=== PATIENT | male | born 1935 | race Caucasian/White ===

== ENCOUNTER 2017-12-25 02:46 | Inpatient (IN) | payer MEDICARE, OTHER ==
[~2017-12-25] VITALS: Ht 180.3 cm; Wt 81.6 kg
[2017-12-25] MEDS ORDERED: Albuterol/Ipratropium 3ml neb HHN ONE ×2 (03:00→05:15)
[2017-12-25] MEDS ORDERED: Solu-MEDROL 125mg Inj IVP ONE (03:15)
[2017-12-25 03:22] LABS: BASOPHILS % (AUTO) 0.6 % (0.0-2.0); EOSINOPHILS % (AUTO) 2.9 % (0.0-3.0); HEMATOCRIT 42.4 % (42.0-52.0); HEMOGLOBIN 14.8 G/DL (14.2-18.0); LYMPHOCYTES % (AUTO) 17.4 % (20.0-45.0); MEAN CORPUSCULAR VOLUME 89 FL (80-99); MONOCYTES % (AUTO) 5.2 % (1.0-10.0); NEUTROPHILS % (AUTO) 73.8 % (45.0-75.0); PLATELET COUNT 106 K/UL (150-450); RED BLOOD COUNT 4.74 M/UL (4.70-6.10); WHITE BLOOD COUNT 6.2 K/UL (4.8-10.8)
[2017-12-25 03:45] LABS: INR 0.9 (0.9-1.1)
[2017-12-25 04:20] LABS: APPEARANCE,URINE CLEAR; BILIRUBIN, URINE NEGATIVE (NEGATIVE); COLOR,URINE PALE YELLOW; GLUCOSE, URINE (UA) NEGATIVE (NEGATIVE); KETONES,URINE NEGATIVE (NEGATIVE); LEUKOCYTE ESTERASE ,URINE NEGATIVE (NEGATIVE); NITRITE,URINE NEGATIVE (NEGATIVE); PH,URINE 6 (4.5-8.0); PROTEIN,URINE NEGATIVE (NEGATIVE); UROBILINOGEN,URINE NORMAL MG/DL (0.0-1.0)
[2017-12-25 06:35] VITALS: BP 128/89
--- NOTE | 2017-12-25 07:40 | Emergency Room Report ---
History of Present Illness General Chief Complaint: Dyspnea/Respdistress Source: Patient Present Illness HPI Patient is an 82-year-old male brought in by EMS after increased difficulty breathing for the past 6 hours. Patient prior history of previous smoking. Patient had been having intermittently productive cough. He reports having some shortness of breath which was worse with supine position. The patient denied any abdominal pain or vomiting. He reports having some decreased urine output. Allergies: Coded Allergies: No Known Allergies (Unverified , 12/25/17) Patient History Past Medical History: see triage record Reviewed Nursing Documentation: PMH: Agreed, PSxH: Agreed Nursing Documentation-PM Past Medical History: No History, Except For Hx Cardiac Problems: Yes - Heart attack Review of Systems All Other Systems: negative except mentioned in HPI Physical Exam Vital Signs Date Time Temp Pulse Resp B/P (MAP) Pulse Ox O2 Delivery O2 Flow Rate FiO2 12/25/17 02:35 99.8 49 23 127/63 98 Nasal Cannula 2.0 99.9 12/25/17 03:00 28 Sp02 EP Interpretation: reviewed, normal General Appearance: alert, GCS 15, mild distress Head: atraumatic ENT: normal ENT inspection, hearing grossly normal, normal voice Neck: normal inspection, full range of motion, supple, no bony tend Respiratory: normal inspection, no respiratory distress, no retraction, wheezing Cardiovascular #1: regular rate, rhythm, no edema Gastrointestinal: normal inspection, normal bowel sounds, non tender, soft, no guarding, no hernia Genitourinary: no CVA tenderness Musculoskeletal: normal inspection, back normal, normal range of motion Neurologic: normal inspection, alert, oriented x3, responsive, process lead III-XII nml as tested, motor strength/tone normal, speech normal Psychiatric: normal inspection, judgement/insight normal, mood/affect normal Skin: normal inspection, normal color, no rash Medical Decision Making Diagnostic Impression: Primary Impression: Dyspnea Additional Impression: COPD exacerbation ER Course Patient presented for shortness of breath.Differential included but was not limited to anemia, pneumonia, pneumothorax, myocardial infarction, pericardial effusion, congestive heart failure, acidosis. Because of complexity of patient' s case laboratory testing and imaging studies were ordered. Laboratory were notable for normal white blood count. Chest x-ray one view interpreted by me showed hyperinflation without definite infiltrate. The patient was given steroids as well as breathing treatments. Dr. Pederson was contacted for [facility] for inpatient management Labs Test 12/25/17 03:03 12/25/17 03:07 12/25/17 04:12 Prothrombin Time 9.5 SEC (9.30-11.50) Prothromb Time International Ratio 0.9 (0.9-1.1) Activated Partial Thromboplast Time 24 SEC (23-33) Lactic Acid Level 1.50 mmol/L (0.66-2.22) Troponin I 0.000 ng/mL (0.000-0.056) C-Reactive Protein, Quantitative 0.9 mg/dL (0.00-0.90) Pro-B-Type Natriuretic Peptide 63 pg/mL (0-125) White Blood Count 6.2 K/UL (4.8-10.8) Red Blood Count 4.74 M/UL (4.70-6.10) Hemoglobin 14.8 G/DL (14.2-18.0) Hematocrit 42.4 % (42.0-52.0) Mean Corpuscular Volume 89 FL (80-99) Mean Corpuscular Hemoglobin 31.2 PG (27.0-31.0) Mean Corpuscular Hemoglobin Concent 35.0 G/DL (32.0-36.0) Red Cell Distribution Width 12.0 % (11.6-14.8) Platelet Count 106 K/UL (150-450) Mean Platelet Volume 10.2 FL (6.5-10.1) Neutrophils (%) (Auto) 73.8 % (45.0-75.0) Lymphocytes (%) (Auto) 17.4 % (20.0-45.0) Monocytes (%) (Auto) 5.2 % (1.0-10.0) Eosinophils (%) (Auto) 2.9 % (0.0-3.0) Basophils (%) (Auto) 0.6 % (0.0-2.0) Urine Color Pale yellow Urine Appearance Clear Urine pH 6 (4.5-8.0) Urine Specific [place] 1.010 (1.005-1.035) Urine Protein Negative (NEGATIVE) Urine Glucose (UA) Negative (NEGATIVE) Urine Ketones Negative (NEGATIVE) Urine Occult Blood Negative (NEGATIVE) Urine Nitrite Negative (NEGATIVE) Urine Bilirubin Negative (NEGATIVE) Urine Urobilinogen Normal MG/DL (0.0-1.0) Urine Leukocyte Esterase Negative (NEGATIVE) Urine RBC 0 /HPF (0 - 0) Urine WBC 0 /HPF (0 - 0) Urine Squamous Epithelial Cells Few /LPF (NONE/OCC) Urine Bacteria None /HPF (NONE) EKG Diagnostic Results Rate: normal Rhythm: NSR ST Segments: no acute changes Last Vital Signs Date Time Temp Pulse Resp B/P (MAP) Pulse Ox O2 Delivery O2 Flow Rate FiO2 12/25/17 07:17 99.9 88 16 128/89 100 Nasal Cannula 2.0 28 99.9 Status: unchanged Disposition: ADMITTED INPATIENT Condition: Serious Scripts Unable to Obtain Active Prescriptions or Reported Meds Referrals: NOT CHOSEN IPA/,REFERRING (PCP) River Quinn Dec 25, 2017 07:40
[2017-12-25] MEDS ORDERED: NEXIUM40 MG ORAL (07:46)
[2017-12-25] MEDS ORDERED: METFORMIN HCL500 M1 ORAL (07:46)
[2017-12-25] MEDS ORDERED: FLOMAX0.4 MG ORAL (07:47)
[2017-12-25] MEDS ORDERED: NAMENDA10 MG ORAL (07:51)
[2017-12-25] MEDS ORDERED: VITAMIN E400 INTLU ORAL (07:51)
[2017-12-25 08:00] VITALS: BP 139/82
[2017-12-25] MEDS: Aspirin Baby 81mg ORAL SCH ×2 (08:36→09:43)
[2017-12-25] MEDS ORDERED: Albuterol/Ipratropium 3ml neb HHN SCH (09:00)
[2017-12-25] MEDS ORDERED: metFORMIN 500mg tab ORAL SCH (09:00)
[2017-12-25] MEDS ORDERED: Albuterol/Ipratropium 3ml neb HHN PRN (09:00)
[2017-12-25] MEDS ORDERED: Memantine 10mg tab ORAL SCH (09:00)
[2017-12-25] MEDS: Albuterol/Ipratropium 3ml neb HHN SCH ×2 (09:32→19:17)
[2017-12-25 10:05] LABS: ALANINE AMINOTRANSFERASE 25 U/L (12-78); ALBUMIN 3.6 G/DL (3.4-5.0); ALKALINE PHOSPHATASE 56 U/L (46-116); ANION GAP 11 mmol/L (5-15); ASPARTATE AMINO TRANSFERASE 22 U/L (15-37); BILIRUBIN,DIRECT 0.1 MG/DL (0.0-0.3); BILIRUBIN,TOTAL 0.3 MG/DL (0.2-1.0); BLOOD UREA NITROGEN 11 mg/dL (7-18); CALCIUM 8.8 MG/DL (8.5-10.1); CARBON DIOXIDE 27 MMOL/L (21-32); CHLORIDE 101 MMOL/L (98-107); POTASSIUM 4.3 MMOL/L (3.5-5.1); SODIUM 139 MMOL/L (136-145)
[2017-12-25] MEDS ORDERED: FINASTERIDE5 MG ORAL (10:16)
[2017-12-25] MEDS ORDERED: OXYBUTYNIN CHLOR5 M1 ORAL (10:16)
[2017-12-25] MEDS: NovoLOG Insulin Flexpen SUBQ SCH ×3 (11:30→21:00)
--- NOTE | 2017-12-25 11:59 | Diagnostic Imaging Report ---
Indication: Shortness of breath Technique: One view of the chest Comparison: none Findings: There are atelectatic changes at the left lung base. A calcite granuloma is seen in the right midlung. The lungs and pleural spaces are otherwise clear. The heart size is normal. The aorta is tortuous and calcified. There are degenerative changes of the left shoulder Impression: No acute process
[2017-12-25 12:00] VITALS: BP 117/56
--- NOTE | 2017-12-25 12:07 | History and Physical ---
History of Present Illness General Date patient seen: Dec 25, 2017 Time patient seen: 12:07 Reason for Hospitalization: Dyspnea/Respdistress Present Illness HPI 82y/o male with pmh of CAD, COPD/asthma, BPH, DM2, GERD who presents with worsening cough and SOB. Pt notes worsening symptoms for abt the past week. Cough is mostly non-productive. C/o congestion, wheezing. SOB worsened few hours prior to admission. Denies f/c, n/v, d/c, chest pain, flu like symptoms, abd pain, dysuria. No recent travel or sick contacts. Pt lives alone but has son who lives near by who helps him out. Independent with ADLS. Pt does note a fall abt 1 month ago. Denies head trauma or LOC. No significant injuries. In ER, pt was given steroids, nebs w/ mild improvement. Allergies: Coded Allergies: LATEX (Verified Allergy, Intermediate, 12/25/17) Medication History Scheduled Esomeprazole Magnesium (Nexium), 40 MG ORAL BID, (Reported) Finasteride (Finasteride), 5 MG ORAL DAILY, (Reported) Memantine Hcl* (Namenda*), 10 MG ORAL DAILY, (Reported) Metformin Hcl* (Metformin Hcl*), 200 MG ORAL TWICE A DAY, (Reported) [place]-3 Acid Ethyl Esters (Lovaza), 1 GM ORAL BID, (Reported) Oxybutynin Chloride (Oxybutynin Chloride), 5 MG ORAL QHS, (Reported) Tamsulosin HCl (Flomax), 0.4 MG ORAL QHS, (Reported) Miscellaneous Medications Vitamin E (Vitamin E), Unknown Dose ORAL, (Reported) Patient History History Provided By: Patient, Family Member, Medical Record Healthcare decision maker Pt's son Resuscitation status Full Code Advanced Directive on File Past Medical/Surgical History Past Medical/Surgical History: (1) COPD/asthma (2) BPH (benign prostatic hyperplasia) (3) CAD (coronary artery disease) (4) DM2 (diabetes mellitus, type 2) Family History Family History: Patient reports no known family medical history. Social History Social History: (1) Lives alone with help available (2) Former smoker, stopped smoking many years ago Review of Systems Constitutional: Reports: weakness Eye: Reports: no symptoms ENT: Reports: no symptoms Respiratory: Reports: cough, shortness of breath, wheezing, UMANA Cardiovascular: Reports: no symptoms Gastrointestinal: Reports: no symptoms Genitourinary: Reports: no symptoms Musculoskeletal: Reports: no symptoms Skin: Reports: no symptoms Psychiatric: Reports: no symptoms Neurological: Reports: no symptoms Endocrine: Reports: no symptoms Hematologic/Lymphatic: Reports: no symptoms All Other Systems: negative except mentioned in HPI Physical Exam Physical Exam Narrative General: alert, cooperative, no distress, appears stated age Head: normocephalic, without obvious abnormality, atraumatic Eyes: conjunctivae/corneas clear. PERRL, EOM's intact Throat: lips, mucosa, and tongue normal. MMM Neck: supple, symmetrical, trachea midline, and no JVD Lungs: +wheezing Heart: regular rate and rhythm, S1, S2 normal, no murmur, click, rub or gallop Abdomen: soft, non-tender, non-distended, bowel sounds normal Extremities: extremities normal, atraumatic, no cyanosis or edema Pulses: 2+ and symmetric Skin: skin color, texture, turgor normal; no rashes or lesions Neurologic: grossly normal, no focal deficits Last 24 Hour Vital Signs Date Time Temp Pulse Resp B/P (MAP) Pulse Ox O2 Delivery O2 Flow Rate FiO2 12/25/17 09:32 61 16 98 Nasal Cannula 2.0 28 12/25/17 08:00 61 12/25/17 07:17 99.9 88 16 128/89 100 Nasal Cannula 2.0 28 99.9 12/25/17 06:35 99.9 88 16 128/89 100 Nasal Cannula 2.0 28 99.9 12/25/17 05:57 68 16 100 Nasal Cannula 2.0 28 12/25/17 05:48 64 16 97 Nasal Cannula 2.0 28 12/25/17 03:07 64 16 99 Nasal Cannula 2.0 28 12/25/17 03:00 60 16 98 Nasal Cannula 2.0 28 12/25/17 02:38 49 23 Nasal Cannula 2.0 12/25/17 02:35 99.8 49 23 127/63 98 Nasal Cannula 2.0 99.9 Intake and Output 12/24/17 12/25/17 19:00 07:00 Intake Total 0 ml Balance 0 ml Intake Oral 0 ml Laboratory Tests Test 12/25/17 03:03 12/25/17 03:07 3/16/18 04:12 12/25/17 09:00 Prothrombin Time 9.5 SEC (9.30-11.50) Prothromb Time International Ratio 0.9 (0.9-1.1) Activated Partial Thromboplast Time 24 SEC (23-33) Lactic Acid Level 1.50 mmol/L (0.66-2.22) Troponin I 0.000 ng/mL (0.000-0.056) 0.000 ng/mL (0.000-0.056) C-Reactive Protein, Quantitative 0.9 mg/dL (0.00-0.90) Pro-B-Type Natriuretic Peptide 63 pg/mL (0-125) White Blood Count 6.2 K/UL (4.8-10.8) Red Blood Count 4.74 M/UL (4.70-6.10) Hemoglobin 14.8 G/DL (14.2-18.0) Hematocrit 42.4 % (42.0-52.0) Mean Corpuscular Volume 89 FL (80-99) Mean Corpuscular Hemoglobin 31.2 PG (27.0-31.0) H Mean Corpuscular Hemoglobin Concent 35.0 G/DL (32.0-36.0) Red Cell Distribution Width 12.0 % (11.6-14.8) Platelet Count 106 K/UL (150-450) L Mean Platelet Volume 10.2 FL (6.5-10.1) H Neutrophils (%) (Auto) 73.8 % (45.0-75.0) Lymphocytes (%) (Auto) 17.4 % (20.0-45.0) L Monocytes (%) (Auto) 5.2 % (1.0-10.0) Eosinophils (%) (Auto) 2.9 % (0.0-3.0) Basophils (%) (Auto) 0.6 % (0.0-2.0) Urine Color Pale yellow Urine Appearance Clear Urine pH 6 (4.5-8.0) Urine Specific [place] 1.010 (1.005-1.035) Urine Protein Negative (NEGATIVE) Urine Glucose (UA) Negative (NEGATIVE) Urine Ketones Negative (NEGATIVE) Urine Occult Blood Negative (NEGATIVE) Urine Nitrite Negative (NEGATIVE) Urine Bilirubin Negative (NEGATIVE) Urine Urobilinogen Normal MG/DL (0.0-1.0) Urine Leukocyte Esterase Negative (NEGATIVE) Urine RBC 0 /HPF (0 - 0) Urine WBC 0 /HPF (0 - 0) Urine Squamous Epithelial Cells Few /LPF (NONE/OCC) Urine Bacteria None /HPF (NONE) Sodium Level 139 MMOL/L (136-145) Potassium Level 4.3 MMOL/L (3.5-5.1) Chloride Level 101 MMOL/L (98-107) Carbon Dioxide Level 27 MMOL/L (21-32) Anion Gap 11 mmol/L (5-15) Blood Urea Nitrogen 11 mg/dL (7-18) Creatinine 1.0 MG/DL (0.55-1.30) Estimat Glomerular Filtration Rate mL/min (>60) Glucose Level 178 MG/DL (74-106) H Hemoglobin A1c 5.9 % (4.3-6.0) Calcium Level 8.8 MG/DL (8.5-10.1) Magnesium Level 2.0 MG/DL (1.8-2.4) Total Bilirubin 0.3 MG/DL (0.2-1.0) Direct Bilirubin 0.1 MG/DL (0.0-0.3) Aspartate Amino Transf (AST/SGOT) 22 U/L (15-37) Alanine Aminotransferase (ALT/SGPT) 25 U/L (12-78) Alkaline Phosphatase 56 U/L (46-116) Total Protein 7.4 G/DL (6.4-8.2) Albumin 3.6 G/DL (3.4-5.0) Microbiology Date/Time Source Procedure Growth Status 12/25/17 03:34 Nasal Nares Influenza Types A,B Antigen (СВЕТЛАНА) - Final Complete Height (Feet): 5 Height (Inches): 11.00 Weight (Pounds): 180 Medications Current Medications Medications (Trade) Dose Ordered Sig/Madi Route PRN Reason Start Time Stop Time Status Last Admin Dose Admin Albuterol/ Ipratropium (Albuterol/ Ipratropium) 3 ml Q4H PRN HHN Shortness of Breath 12/25/17 09:00 12/30/17 08:59 Albuterol/ Ipratropium (Albuterol/ Ipratropium) 3 ml Q6HRT HHN 12/25/17 09:00 12/30/17 08:59 12/25/17 09:32 Aspirin (ASA) 81 mg DAILY ORAL 12/25/17 09:00 01/24/18 08:59 12/25/17 09:43 Dextrose (Dextrose 50%) STAT PRN IV Hypoglycemia 12/25/17 09:00 01/24/18 08:59 Insulin Aspart (NovoLOG) BEFORE MEALS AND HS SUBQ 12/25/17 11:30 01/24/18 11:29 Memantine (Namenda) 10 mg DAILY ORAL 12/25/17 09:00 01/24/18 08:59 Tamsulosin HCl (Flomax) 0.4 mg QHS ORAL 12/25/17 21:00 01/24/18 20:59 Assessment/Plan Problem List: (1) COPD exacerbation ICD Codes: J44.1 - Chronic obstructive pulmonary disease with (acute) exacerbation SNOMED: 834919363 (2) Bronchitis ICD Codes: J40 - Bronchitis, not specified as acute or chronic SNOMED: 91598628 (3) CAD (coronary artery disease) ICD Codes: I25.10 - Atherosclerotic heart disease of [place] coronary artery without angina pectoris SNOMED: 24578527 (4) BPH (benign prostatic hyperplasia) ICD Codes: N40.0 - Benign prostatic hyperplasia without lower urinary tract symptoms SNOMED: 155845904 (5) DM2 (diabetes mellitus, type 2) ICD Codes: E11.9 - Type 2 diabetes mellitus without complications SNOMED: 26870553 Status: stable Assessment/Plan Admit inpt Pulmonology consulted s/p solumedrol 125mg IV in ED Cont steroids per pulm Start azithro 500mg daily Cont duonebs ATC and PRN Mucinex BID Guaifenesin PRN cough Cont O2 and wean as tolerated, titrate to O2 sat 88-92% Cont home meds but hold MTF for now MAKI Pain control, bowel regimen Supportive care PT eval DVT Prophylaxis: SCD, HSQ Code Status: Full Hospital Classification Declaration: Based on this initial evaluation, and depending on the patient's clinical course, I anticipate that this patient will require hospitalization for 1-3 days for acute COPD exacerbation and close respiratory/hemodynamic monitoring. Disposition: Once the patient is stable to leave the hospital, I anticipate the patient will likely be discharged to the following environment: home with HH vs SNF (son declines SNF) I spent 69 minutes on this patient's case, and >50% was dedicated to counseling and/or care coordination. Discussed with patient/family, nursing staff, SW/CM, pulmonology regarding clinical status, treatment course, and disposition planning. D/w son re plan of care. Time of note may not reflect time of encounter. Luan Arora M.D. Dec 25, 2017 12:07
[2017-12-25] MEDS ORDERED: DiphenhydrAMINE & Zinc 28g Cream TOPIC PRN ×2 (12:15→12:45)
[2017-12-25] MEDS ORDERED: LOVAZA1 GM ORAL (12:16)
--- NOTE | 2017-12-25 14:57 | Consultation ---
Consult Note Assessment/Plan [facility] DICT # [id number] DEREJE SYED M.D. Dec 25, 2017 14:57
[2017-12-25] MEDS: Azithromycin 250mg tab ORAL SCH (15:26)
[2017-12-25] MEDS: guaiFENesin 100mg/5ml Liq ud ORAL PRN ×2 (15:32→23:17)
[2017-12-25 16:00] VITALS: BP 130/62
[2017-12-25] MEDS ORDERED: Azithromycin 250mg tab ORAL SCH (16:00)
[2017-12-25 20:00] VITALS: BP 127/56
[2017-12-25] MEDS: Oxybutynin 5mg tab ORAL SCH (21:00)
[2017-12-25] MEDS: Heparin 5000 units/ml inj SUBQ SCH (21:00)
[2017-12-25] MEDS: Solu-MEDROL 40mg Inj IVP SCH (21:00)
[2017-12-25] MEDS: guaiFENesin ER 600mg tab ORAL SCH (21:00)
--- NOTE | 2017-12-25 21:48 | Consultation ---
History of Present Illness General Date patient seen: Dec 25, 2017 Chief Complaint: Dyspnea/Respdistress Present Illness HPI 82-year-old male brought in by EMS after increased difficulty breathing for the past 6 hours. Patient prior history of previous smoking. Patient had been having intermittently productive cough. the pt pw anxiety and memory impairment. Allergies: Coded Allergies: LATEX (Verified Allergy, Intermediate, 12/25/17) Medication History Scheduled Esomeprazole Magnesium (Nexium), 40 MG ORAL BID, (Reported) Finasteride (Finasteride), 5 MG ORAL DAILY, (Reported) Memantine Hcl* (Namenda*), 10 MG ORAL DAILY, (Reported) Metformin Hcl* (Metformin Hcl*), 200 MG ORAL TWICE A DAY, (Reported) [place]-3 Acid Ethyl Esters (Lovaza), 1 GM ORAL BID, (Reported) Oxybutynin Chloride (Oxybutynin Chloride), 5 MG ORAL QHS, (Reported) Tamsulosin HCl (Flomax), 0.4 MG ORAL QHS, (Reported) Miscellaneous Medications Vitamin E (Vitamin E), Unknown Dose ORAL, (Reported) Patient History Limited by: medical condition History Provided By: Patient, Medical Record, PMD Healthcare decision maker Resuscitation status Full Code Advanced Directive on File Past Medical/Surgical History Past Medical/Surgical History: (1) Dyspnea (2) CAD (coronary artery disease) (3) BPH (benign prostatic hyperplasia) (4) COPD/asthma (5) Bronchitis (6) COPD exacerbation Review of Systems Psychiatric: Reports: prior hx, anxiety, depressed feelings, emotional problems Physical Exam General Appearance: no apparent distress, alert Neurologic: alert, oriented x 3, responsive, depressed affect Last 24 Hour Vital Signs Date Time Temp Pulse Resp B/P (MAP) Pulse Ox O2 Delivery O2 Flow Rate FiO2 12/25/17 19:38 56 18 95 Nasal Cannula 2.0 28 12/25/17 19:16 28 12/25/17 19:14 56 18 95 Nasal Cannula 2.0 28 12/25/17 16:00 56 12/25/17 16:00 97.9 53 18 130/62 95 Nasal Cannula 2.0 97.9 12/25/17 12:00 63 12/25/17 12:00 97.7 66 20 117/56 98 Nasal Cannula 2.0 97.7 12/25/17 09:45 64 16 99 Nasal Cannula 2.0 28 12/25/17 09:32 61 16 98 Nasal Cannula 2.0 28 12/25/17 08:00 97.3 63 19 139/82 96 Nasal Cannula 2.0 97.3 12/25/17 08:00 61 12/25/17 07:17 99.9 88 16 128/89 100 Nasal Cannula 2.0 28 99.9 12/25/17 06:35 99.9 88 16 128/89 100 Nasal Cannula 2.0 28 99.9 12/25/17 05:57 68 16 100 Nasal Cannula 2.0 28 12/25/17 05:48 64 16 97 Nasal Cannula 2.0 28 12/25/17 03:07 64 16 99 Nasal Cannula 2.0 28 12/25/17 03:00 60 16 98 Nasal Cannula 2.0 28 12/25/17 02:38 49 23 Nasal Cannula 2.0 12/25/17 02:35 99.8 49 23 127/63 98 Nasal Cannula 2.0 99.9 Intake and Output 12/24/17 12/25/17 19:00 07:00 Intake Total 0 ml Balance 0 ml Intake Oral 0 ml Laboratory Tests Test 12/25/17 03:03 12/25/17 03:07 12/25/17 04:12 12/25/17 09:00 Prothrombin Time 9.5 SEC (9.30-11.50) Prothromb Time International Ratio 0.9 (0.9-1.1) Activated Partial Thromboplast Time 24 SEC (23-33) Lactic Acid Level 1.50 mmol/L (0.66-2.22) Troponin I 0.000 ng/mL (0.000-0.056) 0.000 ng/mL (0.000-0.056) C-Reactive Protein, Quantitative 0.9 mg/dL (0.00-0.90) Pro-B-Type Natriuretic Peptide 63 pg/mL (0-125) White Blood Count 6.2 K/UL (4.8-10.8) Red Blood Count 4.74 M/UL (4.70-6.10) Hemoglobin 14.8 G/DL (14.2-18.0) Hematocrit 42.4 % (42.0-52.0) Mean Corpuscular Volume 89 FL (80-99) Mean Corpuscular Hemoglobin 31.2 PG (27.0-31.0) H Mean Corpuscular Hemoglobin Concent 35.0 G/DL (32.0-36.0) Red Cell Distribution Width 12.0 % (11.6-14.8) Platelet Count 106 K/UL (150-450) L Mean Platelet Volume 10.2 FL (6.5-10.1) H Neutrophils (%) (Auto) 73.8 % (45.0-75.0) Lymphocytes (%) (Auto) 17.4 % (20.0-45.0) L Monocytes (%) (Auto) 5.2 % (1.0-10.0) Eosinophils (%) (Auto) 2.9 % (0.0-3.0) Basophils (%) (Auto) 0.6 % (0.0-2.0) Urine Color Pale yellow Urine Appearance Clear Urine pH 6 (4.5-8.0) Urine Specific [place] 1.010 (1.005-1.035) Urine Protein Negative (NEGATIVE) Urine Glucose (UA) Negative (NEGATIVE) Urine Ketones Negative (NEGATIVE) Urine Occult Blood Negative (NEGATIVE) Urine Nitrite Negative (NEGATIVE) Urine Bilirubin Negative (NEGATIVE) Urine Urobilinogen Normal MG/DL (0.0-1.0) Urine Leukocyte Esterase Negative (NEGATIVE) Urine RBC 0 /HPF (0 - 0) Urine WBC 0 /HPF (0 - 0) Urine Squamous Epithelial Cells Few /LPF (NONE/OCC) Urine Bacteria None /HPF (NONE) Sodium Level 139 MMOL/L (136-145) Potassium Level 4.3 MMOL/L (3.5-5.1) Chloride Level 101 MMOL/L (98-107) Carbon Dioxide Level 27 MMOL/L (21-32) Anion Gap 11 mmol/L (5-15) Blood Urea Nitrogen 11 mg/dL (7-18) Creatinine 1.0 MG/DL (0.55-1.30) Estimat Glomerular Filtration Rate mL/min (>60) Glucose Level 178 MG/DL (74-106) H Hemoglobin A1c 5.9 % (4.3-6.0) Calcium Level 8.8 MG/DL (8.5-10.1) Magnesium Level 2.0 MG/DL (1.8-2.4) Total Bilirubin 0.3 MG/DL (0.2-1.0) Direct Bilirubin 0.1 MG/DL (0.0-0.3) Aspartate Amino Transf (AST/SGOT) 22 U/L (15-37) Alanine Aminotransferase (ALT/SGPT) 25 U/L (12-78) Alkaline Phosphatase 56 U/L (46-116) Total Protein 7.4 G/DL (6.4-8.2) Albumin 3.6 G/DL (3.4-5.0) Test 12/25/17 15:15 Troponin I 0.000 ng/mL (0.000-0.056) Microbiology Date/Time Source Procedure Growth Status 12/25/17 03:34 Nasal Nares Influenza Types A,B Antigen (СВЕТЛАНА) - Final Complete Height (Feet): 5 Height (Inches): 11.00 Weight (Pounds): 180 Medications Current Medications Medications (Trade) Dose Ordered Sig/Madi Route PRN Reason Start Time Stop Time Status Last Admin Dose Admin Acetaminophen (Tylenol) 650 mg Q4H PRN ORAL Fever/Headache/Mild Pain 12/25/17 12:45 01/24/18 12:44 12/25/17 13:12 Albuterol/ Ipratropium (Albuterol/ Ipratropium) 3 ml Q4H PRN HHN Shortness of Breath 12/25/17 09:00 12/30/17 08:59 Albuterol/ Ipratropium (Albuterol/ Ipratropium) 3 ml Q6HRT HHN 12/25/17 09:00 12/30/17 08:59 12/25/17 19:17 Aspirin (ASA) 81 mg DAILY ORAL 12/25/17 09:00 01/24/18 08:59 12/25/17 09:43 Azithromycin (Zithromax) 500 mg Q24H ORAL 12/25/17 15:30 01/01/18 15:29 12/25/17 15:26 Dextrose (Dextrose 50%) STAT PRN IV Hypoglycemia 12/25/17 09:00 01/24/18 08:59 Diphenhydramine HCl (Benadryl Cream) 1 applic TIDPRN PRN TOPIC Itching 12/25/17 12:45 01/24/18 12:44 Finasteride (Proscar) 5 mg QHS ORAL 12/25/17 21:00 01/24/18 20:59 Guaifenesin (Mucinex ER) 600 mg TWICE A DAY ORAL 12/25/17 21:00 01/24/18 20:59 Guaifenesin (Robitussin) 100 mg Q4H PRN ORAL For Cough 12/25/17 14:15 01/24/18 14:14 12/25/17 15:32 Heparin Sodium (Porcine) (Heparin 5000 units/ml) 5,000 units EVERY 12 HOURS SUBQ 12/25/17 21:00 01/24/18 20:59 Insulin Aspart (NovoLOG) BEFORE MEALS AND HS SUBQ 12/25/17 11:30 01/24/18 11:29 12/25/17 16:39 Methylprednisolone Sodium Succinate (Solu-MEDROL) 40 mg EVERY 12 HOURS IVP 12/25/17 21:00 01/24/18 20:59 Non-Formulary Medication (Non-Formulary Med) 1 ea BID ORAL 12/25/17 18:00 01/24/18 17:59 UNV Non-Formulary Medication (Non-Formulary Med) 1 ea DAILY ORAL 12/26/17 09:00 01/25/18 08:59 UNV Oxybutynin Chloride (Ditropan) 5 mg QHS ORAL 12/25/17 21:00 01/24/18 20:59 Pantoprazole (Protonix) 40 mg DAILY ORAL 12/25/17 13:00 01/24/18 12:59 12/25/17 13:10 Tamsulosin HCl (Flomax) 0.4 mg QHS ORAL 12/25/17 21:00 01/24/18 20:59 Assessment/Plan Status: stable Assessment/Plan dementia mild anxiety copd -ativan Delaney White M.D. Dec 25, 2017 21:48
[2017-12-25] MEDS: Tamsulosin 0.4mg cap ORAL SCH (23:18)
--- NOTE | 2017-12-25 23:45 | Consultation ---
DATE OF CONSULTATION: 12/25/2017 PULMONARY CONSULTATION CONSULTING PHYSICIAN: Kathe Grider M.D. REFERRING PHYSICIAN: Luan Arora M.D. REASON FOR CONSULTATION: Respiratory illness. HISTORY OF PRESENT ILLNESS: The patient is an 82-year-old male, former smoker with a history of asthmatic bronchitis versus COPD and multiple other medical problems who presented to the emergency department with approximately 10 days of cough, congestion, and shortness of breath. It had been worse six hours prior to coming in. Cough is productive of yellow phlegm. He has also had wheezing and shortness of breath is worse when supine. No rhinorrhea or congestion. No fevers or chills. No nausea, vomiting, diarrhea, or constipation. No hemoptysis or recent weight loss. He used his inhalers at home without any alleviation in his symptoms. He is unsure of the name of the inhalers that he is on. Since receiving nebulizers and steroids, he notes some marked improvement. PAST MEDICAL HISTORY: 1. COPD versus asthmatic bronchitis. 2. Diabetes. 3. GERD. 4. BPH. 5. CAD status post prior [place]. 6. CVA. 7. Chronic neck and back pain. 8. Rheumatoid arthritis. MEDICATIONS: Prior to admission medications, Nexium, finasteride, Namenda, metformin, Lovaza, oxybutynin, tamsulosin, and vitamin E. Current medications reviewed. ALLERGIES: Latex. SOCIAL HISTORY: He is a former smoker, quit approximately 20 years ago. No drug or alcohol use. Lives with his family. His son is a pharmacist. FAMILY HISTORY: Noncontributory. REVIEW OF SYSTEMS: Negative other than history of present illness. PHYSICAL EXAMINATION: GENERAL: He is an elderly male, in no acute distress. Awake, alert, and oriented x3. VITAL SIGNS: Temperature 99.9 degrees, pulse 88, blood pressure 128/89, respiratory rate 16, and saturating 100% on two liters. HEENT: Normocephalic and atraumatic. Oropharynx is clear with moist mucous membranes. NECK: Supple without lymphadenopathy or JVD. CHEST: Coarse breath sounds with end-expiratory wheezing. HEART: Regular rate and rhythm. ABDOMEN: Soft, nontender, and nondistended. EXTREMITIES: No cyanosis, clubbing, or edema. ANCILLARY DATA: White count 6.3, hemoglobin 14.8, and platelet count 106. INR is 0.9. Sodium 139, potassium 4.2, chloride 101, bicarbonate 27, BUN 11, creatinine 1, and glucose 178. Hemoglobin A1c 5.9. Lactic acid 1.5. Calcium 8.8. Magnesium 2. Total bilirubin 0.3 and direct 0.1. AST 22, ALT 25, and alkaline phosphatase 56. Troponin negative. CRP 0.9. BNP 63. Total protein 7.4. Albumin 3.6. Urinalysis was negative. Rapid influenza A and B in the ER was negative for both. Chest x-ray in the emergency department showed some atelectasis at the base and calcified right mid lung granuloma, otherwise no finding. Degenerative changes were noted. Duplex of the lower extremities was negative bilaterally. ASSESSMENT: The patient is a very pleasant 82-year-old male, former smoker with a history of chronic obstructive pulmonary disease versus asthmatic bronchitis, coronary artery disease, rheumatoid arthritis, chronic neck and back pain, benign prostatic hypertrophy, diabetes, prior CVA, and possible dementia, presenting with a respiratory illness, likely secondary to exacerbation of his underlying obstructive lung disease. I suspect there was an antecedent respiratory infection, viral upper respiratory infection versus bronchitis. He is fairly stable from a respiratory standpoint. PROBLEM LIST: 1. Hypoxemic respiratory failure secondary to exacerbation of underlying asthmatic bronchitis versus COPD. 2. COPD versus asthmatic bronchitis with acute exacerbation. 3. Likely antecedent viral URI versus community-acquired bronchitis. 4. History of CAD status post prior [place]. 5. History of prior CVA. 6. Chronic neck and back pain. 7. DJD. 8. Rheumatoid arthritis. 9. Hypertension. 10. Hyperlipidemia. 11. Diabetes. 12. Former smoker. TREATMENT PLAN: 1. Optimize pulmonary hygiene/mobilize as tolerated. 2. DuoNeb q.6 h. while awake and q.4 h. p.r.n. 3. We will start Solu-Medrol 40 mg IV b.i.d. and taper based on response. 4. Continue Mucinex. 5. Continue p.r.n. Robitussin. 6. We will start azithromycin for anti-inflammatory effect. 7. Aspiration precautions. 8. Monitor volumes. 9. DVT prophylaxis, heparin subcutaneous. Dr. Arora, thank you for allowing me to assist in the care of your patient. If I may be of any assistance in the future, please do not hesitate to ask. Peter Grider M.D. DR: MIKEY JOB#: [id number] CC:
[2017-12-26] VITALS: BP 124/69
[2017-12-26] MEDS: Albuterol/Ipratropium 3ml neb HHN SCH ×4 (01:05→19:48)
[2017-12-26 04:00] VITALS: BP 126/59
[2017-12-26] MEDS: NovoLOG Insulin Flexpen SUBQ SCH ×4 (06:30→21:35)
[2017-12-26 08:00] VITALS: BP 121/67
[2017-12-26] MEDS: Heparin 5000 units/ml inj SUBQ SCH ×2 (09:00→21:00)
[2017-12-26] MEDS: Aspirin Baby 81mg ORAL SCH (09:15)
[2017-12-26] MEDS: guaiFENesin ER 600mg tab ORAL SCH ×2 (09:16→17:09)
[2017-12-26] MEDS: Solu-MEDROL 40mg Inj IVP SCH ×2 (09:17→21:00)
[2017-12-26 11:40] LABS: BASOPHILS % (AUTO) 0.3 % (0.0-2.0); EOSINOPHILS % (AUTO) 0.2 % (0.0-3.0); HEMATOCRIT 42.7 % (42.0-52.0); HEMOGLOBIN 14.1 G/DL (14.2-18.0); LYMPHOCYTES % (AUTO) 13.8 % (20.0-45.0); MEAN CORPUSCULAR VOLUME 90 FL (80-99); MONOCYTES % (AUTO) 4.2 % (1.0-10.0); NEUTROPHILS % (AUTO) 81.5 % (45.0-75.0); PLATELET COUNT 123 K/UL (150-450); RED BLOOD COUNT 4.77 M/UL (4.70-6.10); RED CELL DISTRIBUTION WIDTH 11.8 % (11.6-14.8); WHITE BLOOD COUNT 7.2 K/UL (4.8-10.8)
[2017-12-26 11:51] LABS: ANION GAP 7 mmol/L (5-15); BLOOD UREA NITROGEN 16 mg/dL (7-18); CARBON DIOXIDE 28 MMOL/L (21-32); CHLORIDE 103 MMOL/L (98-107); CREATININE 0.9 MG/DL (0.55-1.30); POTASSIUM 4.5 MMOL/L (3.5-5.1); SODIUM 138 MMOL/L (136-145)
--- NOTE | 2017-12-26 11:56 | Pulmonology Progress Note ---
Assessment/Plan Problems: (1) COPD exacerbation (2) COPD/asthma (3) Dyspnea (4) CAD (coronary artery disease) (5) DM2 (diabetes mellitus, type 2) (6) BPH (benign prostatic hyperplasia) (7) Bronchitis Assessment/Plan ASSESSMENT: The patient is a very pleasant 82-year-old male, former smoker with a history of chronic obstructive pulmonary disease versus asthmatic bronchitis, coronary artery disease, rheumatoid arthritis, chronic neck and back pain, benign prostatic hypertrophy, diabetes, prior CVA, and possible dementia, presenting with a respiratory illness, likely secondary to exacerbation of his underlying obstructive lung disease. I suspect there was an antecedent respiratory infection, viral upper respiratory infection versus bronchitis. He is fairly stable from a respiratory standpoint. PROBLEM LIST: 1. Hypoxemic respiratory failure secondary to exacerbation of underlying asthmatic bronchitis versus COPD. 2. COPD versus asthmatic bronchitis with acute exacerbation. 3. Likely antecedent viral URI versus community-acquired bronchitis. 4. History of CAD status post prior [place]. 5. History of prior CVA. 6. Chronic neck and back pain. 7. DJD. 8. Rheumatoid arthritis. 9. Hypertension. 10. Hyperlipidemia. 11. Diabetes. 12. Former smoker. TREATMENT PLAN: 1. Optimize pulmonary hygiene/mobilize as tolerated. 2. DuoNeb q.6 h. while awake and q.4 h. p.r.n. 3. Decrease solu-Medrol to 30 mg IV b.i.d. and taper based on response. 4. Continue Mucinex. 5. Continue p.r.n. Robitussin. 6. Continue azithromycin (D2) 7. Aspiration precautions. 8. Monitor volumes. 9. DVT prophylaxis, heparin subcutaneous. 10. PT/OT, encourage OOB Subjective Allergies: Coded Allergies: LATEX (Verified Allergy, Intermediate, 12/25/17) Subjective AFVSS, O2 needs stable, less cough, less SOB, wheezing better, no F/C BS has been elevated Objective Last 24 Hour Vital Signs Date Time Temp Pulse Resp B/P (MAP) Pulse Ox O2 Delivery O2 Flow Rate FiO2 12/26/17 08:00 61 12/26/17 08:00 97.3 57 18 121/67 95 Nasal Cannula 2.0 97.3 12/26/17 07:05 70 18 99 Nasal Cannula 2.0 28 12/26/17 06:58 71 18 98 Nasal Cannula 2.0 28 12/26/17 06:58 28 12/26/17 04:00 47 12/26/17 04:00 98.1 52 12 126/59 98 Nasal Cannula 2.0 98.1 12/26/17 01:21 53 18 97 Nasal Cannula 2.0 28 12/26/17 01:03 28 12/26/17 01:02 50 18 97 Nasal Cannula 2.0 28 12/26/17 00:00 48 12/26/17 00:00 98.4 50 22 124/69 98 Nasal Cannula 2.0 98.4 12/25/17 20:00 55 12/25/17 20:00 98.6 51 20 127/56 96 Nasal Cannula 2.0 98.6 12/25/17 19:38 56 18 95 Nasal Cannula 2.0 28 12/25/17 19:16 28 12/25/17 19:14 56 18 95 Nasal Cannula 2.0 28 12/25/17 16:00 56 12/25/17 16:00 97.9 53 18 130/62 95 Nasal Cannula 2.0 97.9 12/25/17 12:00 63 12/25/17 12:00 97.7 66 20 117/56 98 Nasal Cannula 2.0 97.7 Intake and Output 12/25/17 12/26/17 19:00 07:00 Intake Total 260 ml 200 ml Balance 260 ml 200 ml Intake Oral 260 ml 200 ml # Voids 2 General Appearance: WD/WN, no acute distress HEENT: normocephalic, atraumatic, anicteric, mucous membranes moist Respiratory/Chest: chest wall non-tender, lungs clear - but distant, normal breath sounds, no respiratory distress, no accessory muscle use Cardiovascular: normal peripheral pulses, normal rate, regular rhythm Abdomen: normal bowel sounds, soft, non tender, no organomegaly, non distended , no mass Extremities: no cyanosis, no clubbing, no edema Microbiology Date/Time Source Procedure Growth Status 12/25/17 15:30 Sputum Gram Stain - Final Resulted 12/25/17 15:30 Sputum Sputum Culture - Preliminary NORMAL UPPER RESPIRATORY LUIS ALBERTO AT 24 ... Resulted 12/25/17 03:34 Nasal Nares Influenza Types A,B Antigen (СВЕТЛАНА) - Final Complete Laboratory Tests 12/25/17 15:15: Troponin I 0.000 12/26/17 11:20: White Blood Count 7.2, Red Blood Count 4.77, Hemoglobin 14.1L, Hematocrit 42.7, Mean Corpuscular Volume 90, Mean Corpuscular Hemoglobin 29.5, Mean Corpuscular Hemoglobin Concent 33.0, Red Cell Distribution Width 11.8, Platelet Count 123L, Mean Platelet Volume 11.2H, Neutrophils (%) (Auto) 81.5H, Lymphocytes (%) (Auto ) 13.8L, Monocytes (%) (Auto) 4.2, Eosinophils (%) (Auto) 0.2, Basophils (%) ( Auto) 0.3, Sodium Level 138, Potassium Level 4.5, Chloride Level 103, Carbon Dioxide Level 28, Anion Gap 7, Blood Urea Nitrogen 16, Creatinine 0.9, Estimat Glomerular Filtration Rate , Glucose Level 165H, Calcium Level 9.0 Current Medications Medications (Trade) Dose Ordered Sig/Amdi Route PRN Reason Start Time Stop Time Status Last Admin Dose Admin Acetaminophen (Tylenol) 650 mg Q4H PRN ORAL Fever/Headache/Mild Pain 12/25/17 12:45 01/24/18 12:44 12/25/17 13:12 Albuterol/ Ipratropium (Albuterol/ Ipratropium) 3 ml Q4H PRN HHN Shortness of Breath 12/25/17 09:00 12/30/17 08:59 Albuterol/ Ipratropium (Albuterol/ Ipratropium) 3 ml Q6HRT HHN 12/25/17 09:00 12/30/17 08:59 12/26/17 06:58 Aspirin (ASA) 81 mg DAILY ORAL 12/25/17 09:00 01/24/18 08:59 12/26/17 09:15 Azithromycin (Zithromax) 500 mg Q24H ORAL 12/25/17 15:30 01/01/18 15:29 12/25/17 15:26 Dextrose (Dextrose 50%) STAT PRN IV Hypoglycemia 12/25/17 09:00 01/24/18 08:59 Diphenhydramine HCl (Benadryl Cream) 1 applic TIDPRN PRN TOPIC Itching 12/25/17 12:45 01/24/18 12:44 Finasteride (Proscar) 5 mg QHS ORAL 12/25/17 21:00 01/24/18 20:59 12/25/17 23:17 Fish Oil (Fish Oil) 1,000 mg BID ORAL 12/26/17 12:00 01/25/18 11:59 Guaifenesin (Mucinex ER) 600 mg TWICE A DAY ORAL 12/25/17 21:00 01/24/18 20:59 12/26/17 09:16 Guaifenesin (Robitussin) 100 mg Q4H PRN ORAL For Cough 12/25/17 14:15 01/24/18 14:14 12/25/17 23:17 Heparin Sodium (Porcine) (Heparin 5000 units/ml) 5,000 units EVERY 12 HOURS SUBQ 12/25/17 21:00 01/24/18 20:59 Insulin Aspart (NovoLOG) BEFORE MEALS AND HS SUBQ 12/25/17 11:30 01/24/18 11:29 12/26/17 11:39 Methylprednisolone Sodium Succinate (Solu-MEDROL) 40 mg EVERY 12 HOURS IVP 12/25/17 21:00 01/24/18 20:59 12/26/17 09:17 Non-Formulary Medication (Non-Formulary Med) 1 ea DAILY ORAL 12/26/17 09:00 01/25/18 08:59 UNV Oxybutynin Chloride (Ditropan) 5 mg QHS ORAL 12/25/17 21:00 01/24/18 20:59 12/25/17 21:00 Pantoprazole (Protonix) 40 mg DAILY ORAL 12/25/17 13:00 01/24/18 12:59 12/26/17 09:15 Tamsulosin HCl (Flomax) 0.4 mg QHS ORAL 12/25/17 21:00 01/24/18 20:59 12/25/17 23:18 DEREJE SYED M.D. Dec 26, 2017 11:55
[2017-12-26 12:00] VITALS: BP 121/63
--- NOTE | 2017-12-26 14:45 | General Progress Note ---
Assessment/Plan Status: progressing Assessment/Plan Pulmonology recs appreciated Cont steroids per pulm c/w azithro 500mg daily Cont duonebs ATC and PRN Mucinex BID Guaifenesin PRN cough Cont O2 and wean as tolerated, titrate to O2 sat 88-92% Cont home meds but hold MTF for now MAKI Pain control, bowel regimen Supportive care PT DVT Prophylaxis: SCD, HSQ Code Status: Full Hospital Classification Declaration: Based on this initial evaluation, and depending on the patient's clinical course, I anticipate that this patient will require hospitalization for 1-3 days for acute COPD exacerbation and close respiratory/hemodynamic monitoring. Disposition: Once the patient is stable to leave the hospital, I anticipate the patient will likely be discharged to the following environment: home with HH vs SNF (son declines SNF) I spent 45 minutes on this patient's case, and 27min was dedicated to counseling and/or care coordination. Discussed with patient/family, nursing staff, SW/CM, pulmonology regarding clinical status, treatment course, and disposition planning. D/w son re plan of care. Time of note may not reflect time of encounter. Subjective Date patient seen: Dec 26, 2017 Allergies: Coded Allergies: LATEX (Verified Allergy, Intermediate, 12/25/17) Subjective no acute events afebrile and hds breathing improved on tx tolerating abx pulm following ROS: Constitutional: Reports: weakness Eye: Reports: no symptoms ENT: Reports: no symptoms Respiratory: Reports: cough, shortness of breath, wheezing, UMANA Cardiovascular: Reports: no symptoms Gastrointestinal: Reports: no symptoms Genitourinary: Reports: no symptoms Musculoskeletal: Reports: no symptoms Skin: Reports: no symptoms Psychiatric: Reports: no symptoms Neurological: Reports: no symptoms Endocrine: Reports: no symptoms Hematologic/Lymphatic: Reports: no symptoms Objective Last 24 Hour Vital Signs Date Time Temp Pulse Resp B/P (MAP) Pulse Ox O2 Delivery O2 Flow Rate FiO2 12/26/17 12:59 28 12/26/17 12:59 72 18 100 Nasal Cannula 2.0 28 12/26/17 12:52 68 18 97 Nasal Cannula 2.0 28 12/26/17 12:00 48 12/26/17 12:00 97.3 22 121/63 98 Nasal Cannula 2.0 97.3 12/26/17 08:00 61 12/26/17 08:00 97.3 57 18 121/67 95 Nasal Cannula 2.0 97.3 12/26/17 07:05 70 18 99 Nasal Cannula 2.0 28 12/26/17 06:58 71 18 98 Nasal Cannula 2.0 28 12/26/17 06:58 28 12/26/17 04:00 47 12/26/17 04:00 98.1 52 12 126/59 98 Nasal Cannula 2.0 98.1 12/26/17 01:21 53 18 97 Nasal Cannula 2.0 28 12/26/17 01:03 28 12/26/17 01:02 50 18 97 Nasal Cannula 2.0 28 12/26/17 00:00 48 12/26/17 00:00 98.4 50 22 124/69 98 Nasal Cannula 2.0 98.4 12/25/17 20:00 55 12/25/17 20:00 98.6 51 20 127/56 96 Nasal Cannula 2.0 98.6 12/25/17 19:38 56 18 95 Nasal Cannula 2.0 28 12/25/17 19:16 28 12/25/17 19:14 56 18 95 Nasal Cannula 2.0 28 12/25/17 16:00 56 12/25/17 16:00 97.9 53 18 130/62 95 Nasal Cannula 2.0 97.9 Intake and Output 12/25/17 12/26/17 19:00 07:00 Intake Total 260 ml 200 ml Balance 260 ml 200 ml Intake Oral 260 ml 200 ml # Voids 2 Laboratory Tests 12/25/17 15:15: Troponin I 0.000 12/26/17 11:20: White Blood Count 7.2, Red Blood Count 4.77, Hemoglobin 14.1L, Hematocrit 42.7, Mean Corpuscular Volume 90, Mean Corpuscular Hemoglobin 29.5, Mean Corpuscular Hemoglobin Concent 33.0, Red Cell Distribution Width 11.8, Platelet Count 123L, Mean Platelet Volume 11.2H, Neutrophils (%) (Auto) 81.5H, Lymphocytes (%) (Auto ) 13.8L, Monocytes (%) (Auto) 4.2, Eosinophils (%) (Auto) 0.2, Basophils (%) ( Auto) 0.3, Sodium Level 138, Potassium Level 4.5, Chloride Level 103, Carbon Dioxide Level 28, Anion Gap 7, Blood Urea Nitrogen 16, Creatinine 0.9, Estimat Glomerular Filtration Rate , Glucose Level 165H, Calcium Level 9.0 Height (Feet): 5 Height (Inches): 11.00 Weight (Pounds): 180 Objective Physical Exam Narrative General: alert, cooperative, no distress, appears stated age Head: normocephalic, without obvious abnormality, atraumatic Eyes: conjunctivae/corneas clear. PERRL, EOM's intact Throat: lips, mucosa, and tongue normal. MMM Neck: supple, symmetrical, trachea midline, and no JVD Lungs: +wheezing Heart: regular rate and rhythm, S1, S2 normal, no murmur, click, rub or gallop Abdomen: soft, non-tender, non-distended, bowel sounds normal Extremities: extremities normal, atraumatic, no cyanosis or edema Pulses: 2+ and symmetric Skin: skin color, texture, turgor normal; no rashes or lesions Neurologic: grossly normal, no focal deficits Dinesh Bustamante MD Dec 26, 2017 14:45
[2017-12-26] MEDS: Azithromycin 250mg tab ORAL SCH (15:08)
[2017-12-26 16:00] VITALS: BP 125/63
[2017-12-26 20:00] VITALS: BP 120/60
[2017-12-26] MEDS: Tamsulosin 0.4mg cap ORAL SCH (21:00)
[2017-12-26] MEDS: Oxybutynin 5mg tab ORAL SCH (21:01)
--- NOTE | 2017-12-26 22:35 | Diagnostic Imaging Report ---
APPROVED REPORT CPT Code: 09248 Present Symptoms Shortness of breath BILATERAL: Imaging reveals a patent deep venous system bilaterally. There is no evidence of thrombus within the femoral, popliteal or tibial segments. The greater saphenous veins are also within normal limits. Doppler indicates normal spontaneous flow within these segments.
[2017-12-27] VITALS: BP 118/59
[2017-12-27] MEDS: Albuterol/Ipratropium 3ml neb HHN SCH ×5 (01:00→18:44)
[2017-12-27 04:00] VITALS: BP 125/60
[2017-12-27] MEDS: NovoLOG Insulin Flexpen SUBQ SCH ×3 (06:11→17:28)
[2017-12-27 08:00] VITALS: BP 122/64
[2017-12-27] MEDS: Aspirin Baby 81mg ORAL SCH (09:12)
[2017-12-27] MEDS: Heparin 5000 units/ml inj SUBQ SCH (09:14)
[2017-12-27] MEDS: Solu-MEDROL 40mg Inj IVP SCH (09:14)
[2017-12-27] MEDS: guaiFENesin ER 600mg tab ORAL SCH ×2 (09:14→17:29)
--- NOTE | 2017-12-27 11:34 | Pulmonology Progress Note ---
Assessment/Plan Problems: (1) COPD exacerbation (2) COPD/asthma (3) Dyspnea (4) CAD (coronary artery disease) (5) DM2 (diabetes mellitus, type 2) (6) BPH (benign prostatic hyperplasia) (7) Bronchitis Assessment/Plan ASSESSMENT: The patient is a very pleasant 82-year-old male, former smoker with a history of chronic obstructive pulmonary disease versus asthmatic bronchitis, coronary artery disease, rheumatoid arthritis, chronic neck and back pain, benign prostatic hypertrophy, diabetes, prior CVA, and possible dementia, presenting with a respiratory illness, likely secondary to exacerbation of his underlying obstructive lung disease. I suspect there was an antecedent respiratory infection, viral upper respiratory infection versus bronchitis. He is fairly stable from a respiratory standpoint. PROBLEM LIST: 1. Hypoxemic respiratory failure secondary to exacerbation of underlying asthmatic bronchitis versus COPD. 2. COPD versus asthmatic bronchitis with acute exacerbation. 3. Likely antecedent viral URI versus community-acquired bronchitis. 4. History of CAD status post prior [place]. 5. History of prior CVA. 6. Chronic neck and back pain. 7. DJD. 8. Rheumatoid arthritis. 9. Hypertension. 10. Hyperlipidemia. 11. Diabetes. 12. Former smoker. TREATMENT PLAN: 1. Optimize pulmonary hygiene/mobilize as tolerated. 2. Decrease DuoNeb to TID and q.4 h. p.r.n. 3. D/C SM, start Pred 40 and taper 4. Continue Mucinex. 5. Continue p.r.n. Robitussin. 6. Continue azithromycin (D3/5) 7. Aspiration precautions. 8. Monitor volumes. 9. DVT prophylaxis, heparin subcutaneous. 10. PT/OT, encourage OOB Subjective Allergies: Coded Allergies: LATEX (Verified Allergy, Intermediate, 12/25/17) Subjective AFVSS, on RA, walked with FFW with PT, less cough, less SOB, wheezing better, no F/C Objective Last 24 Hour Vital Signs Date Time Temp Pulse Resp B/P (MAP) Pulse Ox O2 Delivery O2 Flow Rate FiO2 12/27/17 08:00 58 12/27/17 08:00 97.0 60 20 122/64 96 Nasal Cannula 2.0 97.0 12/27/17 07:03 Nasal Cannula 2.0 28 12/27/17 07:03 99 Nasal Cannula 2.0 28 12/27/17 06:58 66 18 100 Nasal Cannula 2.0 28 3/18/18 06:58 28 12/27/17 06:51 71 18 98 Nasal Cannula 2.0 28 12/27/17 04:00 98.3 51 20 125/60 98 Nasal Cannula 2.0 98.3 12/27/17 04:00 52 12/27/17 03:29 Nasal Cannula 12/27/17 03:29 Nasal Cannula 12/27/17 00:00 52 12/27/17 00:00 98.4 57 20 118/59 97 Nasal Cannula 2.0 98.4 12/26/17 20:00 51 12/26/17 20:00 96.6 55 20 120/60 97 Nasal Cannula 2.0 96.6 12/26/17 19:59 55 18 100 Nasal Cannula 2.0 28 12/26/17 19:50 28 12/26/17 19:49 50 18 98 Nasal Cannula 2.0 28 12/26/17 19:49 Nasal Cannula 2.0 12/26/17 16:00 97.6 54 20 125/63 97 Nasal Cannula 2.0 97.6 12/26/17 16:00 53 12/26/17 12:59 28 12/26/17 12:59 72 18 100 Nasal Cannula 2.0 28 12/26/17 12:52 68 18 97 Nasal Cannula 2.0 28 12/26/17 12:00 48 12/26/17 12:00 97.3 22 121/63 98 Nasal Cannula 2.0 97.3 Intake and Output 12/26/17 12/27/17 19:00 07:00 Intake Total 260 ml 240 ml Balance 260 ml 240 ml Intake Oral 260 ml 240 ml # Voids 2 General Appearance: WD/WN, no acute distress HEENT: normocephalic, atraumatic, anicteric, mucous membranes moist Respiratory/Chest: chest wall non-tender, lungs clear, normal breath sounds - x faint EEW, no respiratory distress, no accessory muscle use Cardiovascular: normal peripheral pulses, normal rate, regular rhythm Abdomen: normal bowel sounds, soft, non tender, no organomegaly, non distended , no mass Extremities: no cyanosis, no clubbing, no edema Microbiology Date/Time Source Procedure Growth Status 12/25/17 03:10 Blood Blood Culture - Preliminary NO GROWTH AFTER 48 HOURS Resulted 12/25/17 03:03 Blood Blood Culture - Preliminary NO GROWTH AFTER 48 HOURS Resulted 12/25/17 15:30 Sputum Gram Stain - Final Complete 12/25/17 15:30 Sputum Sputum Culture - Final NORMAL UPPER RESPIRATORY LUIS ALBERTO PRESENT Complete 12/25/17 03:34 Nasal Nares Influenza Types A,B Antigen (СВЕТЛАНА) - Final Complete Current Medications Medications (Trade) Dose Ordered Sig/Madi Route PRN Reason Start Time Stop Time Status Last Admin Dose Admin Acetaminophen (Tylenol) 650 mg Q4H PRN ORAL Fever/Headache/Mild Pain 12/25/17 12:45 01/24/18 12:44 12/25/17 13:12 Albuterol/ Ipratropium (Albuterol/ Ipratropium) 3 ml Q4H PRN HHN Shortness of Breath 12/25/17 09:00 12/30/17 08:59 Albuterol/ Ipratropium (Albuterol/ Ipratropium) 3 ml Q6HRT HHN 12/25/17 09:00 12/30/17 08:59 12/27/17 06:51 Aspirin (ASA) 81 mg DAILY ORAL 12/25/17 09:00 01/24/18 08:59 12/27/17 09:12 Azithromycin (Zithromax) 500 mg Q24H ORAL 12/25/17 15:30 01/01/18 15:29 12/26/17 15:08 Dextrose (Dextrose 50%) STAT PRN IV Hypoglycemia 12/25/17 09:00 01/24/18 08:59 Diphenhydramine HCl (Benadryl Cream) 1 applic TIDPRN PRN TOPIC Itching 12/25/17 12:45 01/24/18 12:44 12/26/17 21:33 Finasteride (Proscar) 5 mg QHS ORAL 12/25/17 21:00 01/24/18 20:59 12/26/17 21:01 Fish Oil (Fish Oil) 1,000 mg BID ORAL 12/26/17 12:00 01/25/18 11:59 12/27/17 09:14 Guaifenesin (Mucinex ER) 600 mg TWICE A DAY ORAL 12/25/17 21:00 01/24/18 20:59 12/27/17 09:14 Guaifenesin (Robitussin) 100 mg Q4H PRN ORAL For Cough 12/25/17 14:15 01/24/18 14:14 12/25/17 23:17 Heparin Sodium (Porcine) (Heparin 5000 units/ml) 5,000 units EVERY 12 HOURS SUBQ 12/25/17 21:00 01/24/18 20:59 12/27/17 09:14 Insulin Aspart (NovoLOG) BEFORE MEALS AND HS SUBQ 12/25/17 11:30 01/24/18 11:29 12/27/17 06:11 Methylprednisolone Sodium Succinate (Solu-MEDROL) 30 mg EVERY 12 HOURS IVP 12/26/17 21:00 01/25/18 20:59 12/27/17 09:14 Non-Formulary Medication (Non-Formulary Med) 1 ea DAILY ORAL 12/26/17 09:00 01/25/18 08:59 UNV Oxybutynin Chloride (Ditropan) 5 mg QHS ORAL 12/25/17 21:00 01/24/18 20:59 12/26/17 21:01 Pantoprazole (Protonix) 40 mg DAILY ORAL 12/25/17 13:00 01/24/18 12:59 12/27/17 09:13 Tamsulosin HCl (Flomax) 0.4 mg QHS ORAL 12/25/17 21:00 01/24/18 20:59 12/26/17 21:00 DEREJE SYED M.D. Dec 27, 2017 11:34
[2017-12-27 12:00] VITALS: BP 139/68
[2017-12-27] MEDS: Azithromycin 250mg tab ORAL SCH (15:25)
[2017-12-27 16:00] VITALS: BP 139/83
[2017-12-27] MEDS ORDERED: AZITHROMYCIN250 MG ORAL (19:32)
--- NOTE | 2017-12-27 20:06 | Discharge Summary ---
Discharge Summary Hospital Course Date of Admission Dec 25, 2017 at 05:38 Date of Discharge 12/27/17 Admitting Diagnosis copd exacerbation HPI 82y/o male with pmh of CAD, COPD/asthma, BPH, DM2, GERD who presents with worsening cough and SOB. Pt notes worsening symptoms for abt the past week. Cough is mostly non-productive. C/o congestion, wheezing. SOB worsened few hours prior to admission. Denies f/c, n/v, d/c, chest pain, flu like symptoms, abd pain, dysuria. No recent travel or sick contacts. Pt lives alone but has son who lives near by who helps him out. Independent with ADLS. Pt does note a fall abt 1 month ago. Denies head trauma or LOC. No significant injuries. In ER, pt was given steroids, nebs w/ mild improvement. Consultations Pulmonary Hospital Course Received azithromycin, IV steroids w/ taper to po prednisone and albuterol & atrovent nebs with improvement. Pt will be discharged home on po azithromycin to finish 5 days total and medrol dose pack. Pt will resume his home medications. Pt will follow up w/ his primary account support rep Dr Brody. Discharge Condition Upon Discharge: stable Discharge Disposition Patient was discharged to Home with Home Health(06) Discharge Diagnoses: (1) Dyspnea (2) COPD/asthma (3) COPD exacerbation (4) DM2 (diabetes mellitus, type 2) (5) BPH (benign prostatic hyperplasia) (6) Bronchitis Discharge Instructions Discharge Instructions Follow up with: PCP & Pulm Diet: diabetic calorie control, cardiac 2 GM Na, low fat Activity: as tolerated Dinesh Bustamante MD Dec 27, 2017 20:06
--- NOTE | 2017-12-27 21:42 | General Progress Note ---
Assessment/Plan Assessment/Plan dementia mild anxiety copd -ativan prn Subjective Date patient seen: Dec 27, 2017 Neurologic/Psychiatric: Reports: anxiety, depressed Allergies: Coded Allergies: LATEX (Verified Allergy, Intermediate, 12/25/17) Objective Last 24 Hour Vital Signs Date Time Temp Pulse Resp B/P (MAP) Pulse Ox O2 Delivery O2 Flow Rate FiO2 12/27/17 18:54 75 18 99 Nasal Cannula 2.0 28 12/27/17 18:44 98 Room Air 21 12/27/17 18:44 73 16 98 Room Air 21 12/27/17 16:00 56 12/27/17 16:00 97.6 47 21 139/83 98 Nasal Cannula 2.0 97.6 12/27/17 12:00 58 12/27/17 12:00 97.9 61 22 139/68 97 Nasal Cannula 2.0 97.9 12/27/17 11:40 69 18 99 Nasal Cannula 2.0 28 12/27/17 11:33 28 12/27/17 11:33 73 18 99 Nasal Cannula 2.0 28 12/27/17 08:00 58 12/27/17 08:00 97.0 60 20 122/64 96 Nasal Cannula 2.0 97.0 12/27/17 07:03 Nasal Cannula 2.0 28 12/27/17 07:03 99 Nasal Cannula 2.0 28 12/27/17 06:58 66 18 100 Nasal Cannula 2.0 28 12/27/17 06:58 28 12/27/17 06:51 71 18 98 Nasal Cannula 2.0 28 12/27/17 04:00 98.3 51 20 125/60 98 Nasal Cannula 2.0 98.3 12/27/17 04:00 52 12/27/17 03:29 Nasal Cannula 12/27/17 03:29 Nasal Cannula 12/27/17 00:00 52 12/27/17 00:00 98.4 57 20 118/59 97 Nasal Cannula 2.0 98.4 Intake and Output 12/26/17 12/27/17 19:00 07:00 Intake Total 260 ml 240 ml Balance 260 ml 240 ml Intake Oral 260 ml 240 ml # Voids 2 Height (Feet): 5 Height (Inches): 11.00 Weight (Pounds): 180 General Appearance: no apparent distress, alert Neurologic: alert, oriented x 3, responsive, normal mood/affect Delaney Dixon M.D. Dec 27, 2017 21:42
--- NOTE | 2017-12-27 21:43 | Psych Consult Progress Note ---
Psych Consult Progress Note Consult 12/26/17 Vital Signs Last 24 Hour Vital Signs Date Time Temp Pulse Resp B/P (MAP) Pulse Ox O2 Delivery O2 Flow Rate FiO2 12/27/17 18:54 75 18 99 Nasal Cannula 2.0 28 12/27/17 18:44 98 Room Air 21 12/27/17 18:44 73 16 98 Room Air 21 12/27/17 16:00 56 12/27/17 16:00 97.6 47 21 139/83 98 Nasal Cannula 2.0 97.6 12/27/17 12:00 58 12/27/17 12:00 97.9 61 22 139/68 97 Nasal Cannula 2.0 97.9 12/27/17 11:40 69 18 99 Nasal Cannula 2.0 28 12/27/17 11:33 28 12/27/17 11:33 73 18 99 Nasal Cannula 2.0 28 12/27/17 08:00 58 12/27/17 08:00 97.0 60 20 122/64 96 Nasal Cannula 2.0 97.0 12/27/17 07:03 Nasal Cannula 2.0 28 12/27/17 07:03 99 Nasal Cannula 2.0 28 12/27/17 06:58 66 18 100 Nasal Cannula 2.0 28 12/27/17 06:58 28 12/27/17 06:51 71 18 98 Nasal Cannula 2.0 28 12/27/17 04:00 98.3 51 20 125/60 98 Nasal Cannula 2.0 98.3 12/27/17 04:00 52 12/27/17 03:29 Nasal Cannula 12/27/17 03:29 Nasal Cannula 12/27/17 00:00 52 12/27/17 00:00 98.4 57 20 118/59 97 Nasal Cannula 2.0 98.4 Labs dementia mild anxiety copd -ativan prn Medications Current Medications Medications (Trade) Dose Ordered Sig/Madi Route PRN Reason Start Time Stop Time Status Last Admin Dose Admin Acetaminophen (Tylenol) 650 mg Q4H PRN ORAL Fever/Headache/Mild Pain 12/25/17 12:45 01/24/18 12:44 12/25/17 13:12 Albuterol/ Ipratropium (Albuterol/ Ipratropium) 3 ml Q4H PRN HHN Shortness of Breath 12/25/17 09:00 12/30/17 08:59 Albuterol/ Ipratropium (Albuterol/ Ipratropium) 3 ml TIDRT HHN 12/27/17 13:00 01/01/18 12:59 12/27/17 18:44 Aspirin (ASA) 81 mg DAILY ORAL 12/25/17 09:00 01/24/18 08:59 12/27/17 09:12 Azithromycin (Zithromax) 500 mg Q24H ORAL 12/25/17 15:30 01/01/18 15:29 12/27/17 15:25 Dextrose (Dextrose 50%) STAT PRN IV Hypoglycemia 12/25/17 09:00 01/24/18 08:59 Diphenhydramine HCl (Benadryl Cream) 1 applic TIDPRN PRN TOPIC Itching 12/25/17 12:45 01/24/18 12:44 12/26/17 21:33 Finasteride (Proscar) 5 mg QHS ORAL 12/25/17 21:00 01/24/18 20:59 12/26/17 21:01 Fish Oil (Fish Oil) 1,000 mg BID ORAL 12/26/17 12:00 01/25/18 11:59 12/27/17 17:28 Guaifenesin (Mucinex ER) 600 mg TWICE A DAY ORAL 12/25/17 21:00 01/24/18 20:59 12/27/17 17:29 Guaifenesin (Robitussin) 100 mg Q4H PRN ORAL For Cough 12/25/17 14:15 01/24/18 14:14 12/25/17 23:17 Heparin Sodium (Porcine) (Heparin 5000 units/ml) 5,000 units EVERY 12 HOURS SUBQ 12/25/17 21:00 01/24/18 20:59 12/27/17 09:14 Insulin Aspart (NovoLOG) BEFORE MEALS AND HS SUBQ 12/25/17 11:30 01/24/18 11:29 12/27/17 17:28 Non-Formulary Medication (Non-Formulary Med) 1 ea DAILY ORAL 12/26/17 09:00 01/25/18 08:59 UNV Oxybutynin Chloride (Ditropan) 5 mg QHS ORAL 12/25/17 21:00 01/24/18 20:59 12/26/17 21:01 Pantoprazole (Protonix) 40 mg DAILY ORAL 12/25/17 13:00 01/24/18 12:59 12/27/17 09:13 Prednisone (predniSONE) 40 mg DAILY ORAL 12/28/17 09:00 01/27/18 08:59 Tamsulosin HCl (Flomax) 0.4 mg QHS ORAL 12/25/17 21:00 01/24/18 20:59 12/26/17 21:00 Problems: (1) Dyspnea Status: Acute (2) CAD (coronary artery disease) (3) BPH (benign prostatic hyperplasia) (4) COPD/asthma (5) Bronchitis (6) COPD exacerbation Status: Acute (7) DM2 (diabetes mellitus, type 2) Delaney Dixon M.D. Dec 27, 2017 21:43
--- NOTE | 2017-12-29 18:52 | Cardiology Report ---
APPROVED REPORT EKG Measurement Heart [id number] Sinus rhythm with premature atrial complexes Cannot rule out Inferior infarct, age undetermined Abnormal ECG
== END 2017-12-27 20:11 | disposition home health service (06) | DRG 190 ==
LOC: EDBD 02:46 → EMR 02:55 → 2E 05:38 → EDBEDREQ 05:51
DX: J44.9 Chronic obstructive pulmonary disease, unspecified (principal); J96.91 Respiratory failure, unspecified with hypoxia; E11.9 Type 2 diabetes mellitus without complications; M06.9 Rheumatoid arthritis, unspecified; N40.0 Benign prostatic hyperplasia without lower urinary tract symptoms; J40 Bronchitis, not specified as acute or chronic; Z91.040 Latex allergy status; I25.10 Atherosclerotic heart disease of native coronary artery without angina pectoris; K21.9 Gastro-esophageal reflux disease without esophagitis; I25.2 Old myocardial infarction; Z86.73 Personal history of transient ischemic attack (TIA), and cerebral infarction without residual deficits; G89.29 Other chronic pain; M54.2 Cervicalgia; M54.9 Dorsalgia, unspecified; Z87.891 Personal history of nicotine dependence; M19.90 Unspecified osteoarthritis, unspecified site; F03.90 Unspecified dementia, unspecified severity, without behavioral disturbance, psychotic disturbance, mood disturbance, and anxiety
CPT/HCPCS: 36415; 71045; 80048; 80076; 81001; 82962; 83036; 83605; 83735; 83880; 84484; 85025; 85610; 85730; 86140; 86710; 87040; 87070; 87205; 93005; 93970; 94640; 94760; 99285; J1815; J7620

== ENCOUNTER 2019-01-09 17:03 | Inpatient (IN) | payer MEDICARE, OTHER ==
[~2019-01-09] VITALS: Ht 170.2 cm; Wt 77.1 kg
[~2019-01-09 17:03] MED LIST: AZITHROMYCIN250 MG ORAL; FINASTERIDE5 MG ORAL; FLOMAX0.4 MG ORAL; LOVAZA1 GM ORAL; METFORMIN HCL500 M1 ORAL; NAMENDA10 MG ORAL; NEXIUM40 MG ORAL; OXYBUTYNIN CHLOR5 M1 ORAL; VITAMIN E400 INTLU ORAL
--- NOTE | 2019-01-09 17:05 | NUR ---
ED Nurse Note: brought in by 1 from home due to trip and fall injury yesterday in grocery store. A/Ox4. Denies LOC but c/o back pain and headache today. Laceration on left sided of posterior head noted, pt came in with gauze applied. Per EMS, 4mg of morphine IVP and 4mg of zofran given. c/o 01/19 at this time. No s/s of SOB nor any numbness, N/V at this time.
[2019-01-09 17:07] VITALS: BP 159/66
[2019-01-09] MEDS ORDERED: Tetanus/Diptheria/Pertussis Vaccine 0.5ml Syr IM ONE (17:30)
[2019-01-09] MEDS ORDERED: Bacitracin Oint UD TOPIC ONE (17:30)
--- NOTE | 2019-01-09 17:41 | Emergency Room Report ---
History of Present Illness General Chief Complaint: Multiple Trauma/Fall Source: Patient, Family Member Present Illness HPI Patient presents post syncopal episode yesterday in the bathroom and hitting his head. He also is complaining about lower back pain today and because of the back pain paramedics were summoned. They didn't understand that he might have had syncope. They gave the patient morphine in the field and the pain in his back and head are improved. He denies any neck pain. He is not sure when his last tetanus shot was. He scraped his scalp. There was no significant bleeding. Pain is rated 7/10 in his lower back aching. He rates the pain is 3/ 10 on his head and this is sharp and aching. The patient has a history of diabetes. Patient has chronic hoarseness for 25 years. No fevers, chills, chest pain, palpitations, nausea, vomiting, diarrhea, dysuria , abdominal pain, shortness of breath, depression, visual changes. Allergies: Coded Allergies: LATEX (Verified Allergy, Intermediate, 12/25/17) Patient History Past Medical History: see triage record Social History: Denies: smoking - Former smoker Social History Narrative Born in [facility] - lives at home Reviewed Nursing Documentation: PMH: Agreed; PSxH: Agreed Nursing Documentation-PMH Past Medical History: No Stated History Hx Cardiac Problems: Yes - Heart attack Hx COPD: Yes Hx Diabetes: Yes Hx Cancer: No Hx Gastrointestinal Problems: No Hx Neurological Problems: Yes Hx Alzheimer's Disease: Yes Review of Systems All Other Systems: negative except mentioned in HPI Physical Exam Vital Signs Date Time Temp Pulse Resp B/P (MAP) Pulse Ox O2 Delivery O2 Flow Rate FiO2 01/09/19 16:56 97.2 50 16 154/70 99 Room Air Sp02 EP Interpretation: reviewed, normal General Appearance: well appearing, no apparent distress, GCS 15 Head: normocephalic, other - Operation left parietal occipital area Eyes: bilateral eye normal inspection, bilateral eye PERRL, bilateral eye EOMI , bilateral eye other - Pinpoint pupils ENT: moist mucus membranes Neck: full range of motion, supple, no bony tend Respiratory: chest non-tender, lungs clear, normal breath sounds Cardiovascular #1: bradycardia Cardiovascular #2: 2+ radial (L) Gastrointestinal: normal inspection, normal bowel sounds, non tender, no mass, non-distended Musculoskeletal: gait/station normal, normal range of motion, pelvis stable, other - Lower lumbar and sacral tenderness Neurologic: alert, motor strength/tone normal, DTRs symmetric, sensory intact, speech normal - Hoarseness, oriented - X2 Psychiatric: mood/affect normal Skin: warm/dry, abrasions - Avulsion left scalp Medical Decision Making Diagnostic Impression: Primary Impression: Syncope Qualified Codes: R55 - Syncope and collapse Additional Impressions: Bradycardia Head trauma Qualified Codes: S09.90XA - Unspecified injury of head, initial encounter Back contusion Qualified Codes: S20.229A - Contusion of unspecified back wall of thorax, initial encounter ER Course Patient presents with syncope and head trauma and bradycardia. Differential includes acute myocardial infarction, brain bleed, left right imbalance, medication excess, back fracture amongst others. Evaluation will be with CT the head, lumbar spine and pelvis, EKG, labs, chest x-ray. The patient needs tetanus and wound care. The lesion is not suturable. If the pain returns the patient will be given analgesia here. He's tolerating distal heart rate without difficulty at the moment. Considerations are that if he does deteriorate we will give him atropine. EKG with bradycardia. CT head no bleed, chronic changes. CT back no fractures , DJD. CT pelvis no fractures. Chest x-ray no infiltrates lab unremarkable. Patient bradycardic on monitor but in no distress considerations for treating with atropine however as he's tolerating the heart rate without difficulty patient is observed Discussed with Dr. Ordonez who accepts the admission and is OK observing bradycardia. Discussed with son. Patient admit telemetry. Laboratory Tests Test 01/09/19 17:40 01/09/19 18:40 White Blood Count 5.7 K/UL (4.8-10.8) Red Blood Count 4.31 M/UL (4.70-6.10) L Hemoglobin 12.8 G/DL (14.2-18.0) L Hematocrit 37.8 % (42.0-52.0) L Mean Corpuscular Volume 88 FL (80-99) Mean Corpuscular Hemoglobin 29.7 PG (27.0-31.0) Mean Corpuscular Hemoglobin Concent 33.9 G/DL (32.0-36.0) Red Cell Distribution Width 12.0 % (11.6-14.8) Platelet Count 119 K/UL (150-450) L Mean Platelet Volume 10.4 FL (6.5-10.1) H Neutrophils (%) (Auto) 54.9 % (45.0-75.0) Lymphocytes (%) (Auto) 31.6 % (20.0-45.0) Monocytes (%) (Auto) 8.4 % (1.0-10.0) Eosinophils (%) (Auto) 3.7 % (0.0-3.0) H Basophils (%) (Auto) 1.4 % (0.0-2.0) Prothrombin Time 10.5 SEC (9.30-11.50) Prothrombin Time INR 1.0 (0.9-1.1) PTT 26 SEC (23-33) Sodium Level 142 MMOL/L (136-145) Potassium Level 3.7 MMOL/L (3.5-5.1) Chloride Level 103 MMOL/L (98-107) Carbon Dioxide Level 29 MMOL/L (21-32) Anion Gap 10 mmol/L (5-15) Blood Urea Nitrogen 19 mg/dL (7-18) H Creatinine 1.1 MG/DL (0.55-1.30) Estimate Glomerular Filtration Rate mL/min (>60) Glucose Level 92 MG/DL (74-106) Calcium Level 9.4 MG/DL (8.5-10.1) Total Bilirubin 0.3 MG/DL (0.2-1.0) Aspartate Amino Transferase (AST) 20 U/L (15-37) Alanine Aminotransferase (ALT) 20 U/L (12-78) Alkaline Phosphatase 46 U/L (46-116) Total Creatine Kinase 254 U/L (26-308) Troponin I 0.000 ng/mL (0.000-0.056) Pro-B-Type Natriuretic Peptide 87 pg/mL (0-125) Total Protein 6.7 G/DL (6.4-8.2) Albumin 3.3 G/DL (3.4-5.0) L Globulin 3.4 g/dL Albumin/Globulin Ratio 1.0 (1.0-2.7) Urine Color Pale yellow Urine Appearance Clear Urine pH 6.5 (4.5-8.0) Urine Specific Gratis 1.010 (1.005-1.035) Urine Protein Negative (NEGATIVE) Urine Glucose (UA) Negative (NEGATIVE) Urine Ketones Negative (NEGATIVE) Urine Blood Negative (NEGATIVE) Urine Nitrite Negative (NEGATIVE) Urine Bilirubin Negative (NEGATIVE) Urine Urobilinogen Normal MG/DL (0.0-1.0) Urine Leukocyte Esterase Negative (NEGATIVE) EKG Diagnostic Results Rate: bradycardiac Rhythm: NSR ST Segments: no acute changes Rhythm Strip Diag. Results EP Interpretation: yes Rhythm: no PVC's, no ectopy, other - Bradycardia Chest X-Ray Diagnostic Results Chest X-Ray Diagnostic Results : Chest X-Ray Ordered: Yes # of Views/Limited/Complete: 1 View Indication: Other EP Interpretation: Yes Interpretation: no consolidation, no effusion, no pneumothorax Impression: No acute disease Electronically Signed by: Electronically signed by Kan Odonnell MD CT/MRI/US Diagnostic Results CT/MRI/US Diagnostic Results #1: Imaging Test Ordered: head Impression no bleed, chronic changes CT/MRI/US Diagnostic Results #2: Imaging Test Ordered: lumbar Impression no fx, djd CT/MRI/US Diagnostic Results #3: Imaging Test Ordered: pelvis 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
[2019-01-09] MEDS: Sodium Chloride 550 ML IV SCH ×2 (17:48→21:46)
--- NOTE | 2019-01-09 17:53 | NUR ---
ED Nurse Note: PT SENT DOWN FOR CT VIA GURNEY. HR OF 40s, Denies SOB nor CP. EDUCATED PT THAT URINE SAMPLE NEEDS TO BE COLLECTED, PT VERBALIZED UNDERSTANDING BUT UNABLE TO PROVIDE.
--- NOTE | 2019-01-09 17:53 | NUR ---
Kesha brothers in EDM - 01/09/19 at 1824 by [email or web address] ED Nurse Note: PER JANINE BS IS 134
[2019-01-09 18:02] LABS: BASOPHILS % (AUTO) 1.4 % (0.0-2.0); EOSINOPHILS % (AUTO) 3.7 % (0.0-3.0); HEMATOCRIT 37.8 % (42.0-52.0); HEMOGLOBIN 12.8 G/DL (14.2-18.0); LYMPHOCYTES % (AUTO) 31.6 % (20.0-45.0); MEAN CORPUSCULAR VOLUME 88 FL (80-99); MONOCYTES % (AUTO) 8.4 % (1.0-10.0); NEUTROPHILS % (AUTO) 54.9 % (45.0-75.0); PLATELET COUNT 119 K/UL (150-450); RED BLOOD COUNT 4.31 M/UL (4.70-6.10); WHITE BLOOD COUNT 5.7 K/UL (4.8-10.8)
[2019-01-09 18:22] LABS: ANION GAP 10 mmol/L (5-15); BLOOD UREA NITROGEN 19 mg/dL (7-18); CALCIUM 9.4 MG/DL (8.5-10.1); CARBON DIOXIDE 29 MMOL/L (21-32); CHLORIDE 103 MMOL/L (98-107); CREATININE 1.1 MG/DL (0.55-1.30); POTASSIUM 3.7 MMOL/L (3.5-5.1); SODIUM 142 MMOL/L (136-145)
--- NOTE | 2019-01-09 18:24 | NUR ---
ED Nurse Note: PT BACK FROM CT. NO S/S OF DISTRESS.
[2019-01-09 18:28] LABS: ALANINE AMINOTRANSFERASE 20 U/L (12-78); ALBUMIN 3.3 G/DL (3.4-5.0); ALKALINE PHOSPHATASE 46 U/L (46-116); ASPARTATE AMINO TRANSFERASE 20 U/L (15-37); BILIRUBIN,TOTAL 0.3 MG/DL (0.2-1.0); CREATINE KINASE 254 U/L (26-308)
--- NOTE | 2019-01-09 18:41 | NUR ---
ED Nurse Note: URINE SENT DOWN TO THE LAB.
--- NOTE | 2019-01-09 18:43 | NUR ---
ED Nurse Note: NOTIFIED ERMD THAT PT'S HR REMAINS IN LOW 40s AND PT IS ASYMPTOMATIC. PER ERMD, IT IS OK TO MONITOR FOR NOW AND NO NEW ORDER RECEIVED.
[2019-01-09 19:01] LABS: APPEARANCE,URINE CLEAR; BILIRUBIN, URINE NEGATIVE (NEGATIVE); COLOR,URINE PALE YELLOW; GLUCOSE, URINE (UA) NEGATIVE (NEGATIVE); KETONES,URINE NEGATIVE (NEGATIVE); LEUKOCYTE ESTERASE ,URINE NEGATIVE (NEGATIVE); NITRITE,URINE NEGATIVE (NEGATIVE); PH,URINE 6.5 (4.5-8.0); PROTEIN,URINE NEGATIVE (NEGATIVE); UROBILINOGEN,URINE NORMAL MG/DL (0.0-1.0)
[2019-01-09 19:05] VITALS: BP 122/75
--- NOTE | 2019-01-09 19:05 | NUR ---
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 Pt wound care done and covered with clean dry dressing. pt cleaned and changed, warm blanket provided for comfort. pt advised to notify staff if needed assist.
--- NOTE | 2019-01-09 19:17 | NUR ---
HAND-OFF: Report given to CATALINO Ruvalcaba. No s/s of distress.
[2019-01-09 20:05] VITALS: BP 132/50
--- NOTE | 2019-01-09 22:04 | NUR ---
ED Nurse Note: Report given to CATALINO Ruff from tele.
[2019-01-09 22:09] VITALS: BP 138/53
--- NOTE | 2019-01-09 22:12 | NUR ---
ED Nurse Note: pt transferred to tele, all belongings sent w/ pt, no neuro changes, resp even and unlabored on RA, no pain at this time, -n/v/d, AA&ox4, gcs=15. sinus hira, vss.
[2019-01-09 22:35] VITALS: BP 131/80
--- NOTE | 2019-01-09 22:46 | NUR ---
NURSE NOTES: Admitted patient from ED. Patient alert and oriented x3, denies pain or dizziness at this time. Placed patient on tele, SB on a monitor with HR in 40's. Fall precautions in place: call light, bedside table and urinal within reach, bed in low position and bed alarm on. Called and left message for Dr. Ordonez for admission orders.
[2019-01-10] VITALS: BP 121/52
--- NOTE | 2019-01-10 00:01 | NUR ---
NURSE NOTES: DR. RESENDEZ CALLED WITH NEW ORDERS.
--- NOTE | 2019-01-10 01:16 | NUR ---
NURSE NOTES: PER PATIENT HE IS NOT TAKING ANY MEDICATIONS AT HOME.
[2019-01-10 04:00] VITALS: BP 122/59
--- NOTE | 2019-01-10 07:21 | NUR ---
HAND-OFF: Report given to Harley SLATER RN. PATIENT HAVING BREAKFAST, NO SIGNS OF DISTRESS NOTED.
--- NOTE | 2019-01-10 07:49 | NUR ---
NURSE NOTES: Received report from Abbey BAE. Pt alert in bed. Pt on phototypesetting equipment monitor no signs of distress present at this time. Bed locked and in lowest position. Call light within reach. Will continue plan of care. Per RN pt is not taking any medication at home.
[2019-01-10 08:00] VITALS: BP 109/59
[2019-01-10 08:23] LABS: BASOPHILS % (AUTO) 1.2 % (0.0-2.0); EOSINOPHILS % (AUTO) 4.4 % (0.0-3.0); HEMATOCRIT 40.6 % (42.0-52.0); HEMOGLOBIN 13.4 G/DL (14.2-18.0); LYMPHOCYTES % (AUTO) 30.9 % (20.0-45.0); MEAN CORPUSCULAR VOLUME 89 FL (80-99); MONOCYTES % (AUTO) 7.1 % (1.0-10.0); NEUTROPHILS % (AUTO) 56.4 % (45.0-75.0); PLATELET COUNT 115 K/UL (150-450); RED BLOOD COUNT 4.57 M/UL (4.70-6.10); RED CELL DISTRIBUTION WIDTH 12.4 % (11.6-14.8); WHITE BLOOD COUNT 5.5 K/UL (4.8-10.8)
--- NOTE | 2019-01-10 08:30 | Diagnostic Imaging Report ---
Indications: Back pain secondary to fall, trauma Technique: Spiral acquisitions obtained through the lumbar spine. Multiplanar reconstructions were generated. No IV contrast utilized. Total dose length product 417.83 mGycm. CTDIvol(s) 13.94 mGy. Dose reduction achieved using automated exposure control Comparison: none Findings: There is anterior offset of L4 on L5, presumably due to degenerative change as no or spondylolysis is evident. The remaining bony alignment is normal. No acute fractures. Vertebral body heights are preserved. There is multilevel degenerative disc narrowing. There is failure of fusion and rotational anomaly of the left L1 transverse process. At T12-L1, there is moderate degenerative disc narrowing. There is mild circumferential annular bulge which does not significantly compromise the spinal canal. There is mild right-sided neural foraminal stenosis. At L1-2, there is moderate to severe degenerative disc narrowing. There is circumferential annular bulge. This results in mild stenosis of the spinal canal. The bulging disc and facet arthrosis results in mild narrowing of the bilateral neural foramina. At L2-3, the disc space is preserved. There is circumferential annular bulge. This in combination with ligamentum flavum hypertrophy results in at least moderate narrowing of the spinal canal. There is mild bilateral neural foraminal stenosis. There is bilateral facet arthrosis. At L3-4, there is moderate to severe degenerative disc narrowing. Circumferential annular bulge results in mild narrowing of the spinal canal. There is mild to moderate narrowing of the left neural foramen due to facet arthrosis and uncinate hypertrophy. At L4-5, there is at least moderate spinal canal stenosis due to the alignment abnormality, circumferential annular bulge, and facet hypertrophy. There is at least moderate bilateral neural foraminal compromise due to the above factors. There is mild degenerative disc narrowing At L5-S1, there is circumferential annular bulge. No significant spinal canal stenosis. There is mild narrowing of the bilateral neural foramina due to facet arthrosis. There is moderate to severe narrowing of the disc. The included extra spinal soft tissues are unremarkable. Impression: No acute bony trauma Multilevel degenerative changes, as detailed on a level bilevel basis above This agrees with the preliminary interpretation provided overnight by [facility] teleradiology service. The CT scanner at [facility] is accredited by the [employer] and the scans are performed using protocols designed to limit radiation exposure to as low as reasonably achievable to attain images of sufficient resolution adequate for diagnostic evaluation.
--- NOTE | 2019-01-10 08:37 | Diagnostic Imaging Report ---
Indication: Trauma, pain, status post fall Technique: Noncontrast spiral acquisitions obtained through the pelvis. Multiplanar reconstructions generated. Total dose length product 417.83 mGycm. CTDIvol(s) 13.94 mGy. Dose reduction achieved using automated exposure control Comparison: none Findings: No acute fractures. No dislocations. There are degenerative changes of the lumbosacral junction. No significant soft tissue contusion. The bladder is mildly distended. A bone island is seen within the left proximal femur. The included pelvic viscera are remarkable for the presence of a small fat-containing umbilical hernia. The bladder is somewhat distended. The prostate is prominent Impression: No acute bony trauma Prominent prostate This agrees with the preliminary interpretation provided overnight by [facility] service. The CT scanner at [facility] is accredited by the [employer] and the scans are performed using protocols designed to limit radiation exposure to as low as reasonably achievable to attain images of sufficient resolution adequate for diagnostic evaluation.
[2019-01-10 08:46] LABS: ALANINE AMINOTRANSFERASE 24 U/L (12-78); ALBUMIN 3.2 G/DL (3.4-5.0); ALBUMIN/GLOBULIN RATIO 0.9 (1.0-2.7); ALKALINE PHOSPHATASE 48 U/L (46-116); ANION GAP 9 mmol/L (5-15); ASPARTATE AMINO TRANSFERASE 21 U/L (15-37); BILIRUBIN,TOTAL 0.3 MG/DL (0.2-1.0); BLOOD UREA NITROGEN 17 mg/dL (7-18); CALCIUM 9.4 MG/DL (8.5-10.1); CARBON DIOXIDE 29 MMOL/L (21-32); CHLORIDE 105 MMOL/L (98-107); CREATININE 0.9 MG/DL (0.55-1.30); POTASSIUM 3.9 MMOL/L (3.5-5.1); SODIUM 143 MMOL/L (136-145)
[2019-01-10] MEDS: Heparin 5000 units/ml inj SUBQ SCH ×2 (09:00→21:00)
--- NOTE | 2019-01-10 09:44 | NUR ---
NURSE NOTES: pt went to GI lab for colonoscopy via gurney. Pt stable no signs of distress. Pt is cardia monitor.
--- NOTE | 2019-01-10 11:21 | Diagnostic Imaging Report ---
Indication: Chest pain Technique: One view of the chest Comparison: 12/25/2017 Findings: Calcified nodular opacities are again demonstrated in the right midlung. No acute infiltrates, effusions, or congestion. The heart size is upper limits normal. Impression: No acute process. Findings as noted
--- NOTE | 2019-01-10 11:30 | Diagnostic Imaging Report ---
Indications: Head pain, status post fall Technique: Spiral acquisitions obtained through the brain. Angled axial and coronal 5 x 5 mm slices were reconstructed. Total dose length product 1379.6 mGycm. CTDI vol(s) 70.38 mGy. Dose reduction achieved using automated exposure control Comparison: None. Findings: Intact calvarium. Visualized orbits and sinuses are unremarkable. The mastoids are clear. There is marked age-related enlargement of the ventricles and to a lesser extent the extra-axial CSF spaces. There is considerable periventricular deep white matter low-attenuation consistent with chronic ischemic change. There is encephalomalacia involving the anterior left temporal lobe and frontoparietal opercular region. Apparent extra-axial density seen peripheral to this, measures 15 x 7 mm. This is associated with a small bony protuberance Old lacunar infarct is seen in the left basal ganglia. No acute intracranial hemorrhage nor edema, mass effect, nor midline shift. 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 Suspect that this represents some residual and infarcted brain, but could represent a small meningioma Old left basal ganglia lacunar infarct This agrees with the preliminary interpretation provided overnight by [facility] service. The CT scanner at [facility] is accredited by the [employer] and the scans are performed using protocols designed to limit radiation exposure to as low as reasonably achievable to attain images of sufficient resolution adequate for diagnostic evaluation.
[2019-01-10 12:00] VITALS: BP 131/65
--- NOTE | 2019-01-10 13:36 | Cardiology Progress Note ---
Assessment/Plan Assessment/Plan full cardiology consult dicateted [id number] doubt syncope will have orthosatic vital will need PT ot see if able to get him out of bed hira may be a side effect of aricept Objective Last 24 Hour Vital Signs Date Time Temp Pulse Resp B/P (MAP) Pulse Ox O2 Delivery O2 Flow Rate FiO2 01/10/19 08:00 97.5 44 20 109/59 (76) 96 01/10/19 04:00 41 01/10/19 04:00 97.8 58 18 122/59 (80) 96 01/10/19 00:00 48 01/10/19 00:00 97.4 56 18 121/52 (75) 96 01/09/19 23:02 Room Air 01/09/19 22:35 97.5 50 18 131/80 (97) 98 01/09/19 22:12 98.2 41 14 144/60 100 Room Air 01/09/19 22:09 98.2 44 12 138/53 96 Room Air 01/09/19 20:05 98.2 41 12 132/50 96 Room Air 01/09/19 19:05 98.2 42 12 122/75 96 Room Air 01/09/19 19:05 42 16 Room Air 01/09/19 17:08 46 10 Room Air 01/09/19 17:07 97.2 46 10 159/66 99 Room Air 01/09/19 16:56 97.2 50 16 154/70 99 Room Air Intake and Output 01/09/19 01/10/19 19:00 07:00 Intake Total 240 ml Output Total 350 ml Balance -110 ml Intake Oral 240 ml Output Urine Total 350 ml # Voids 1 Laboratory Tests Test 01/09/19 17:40 01/09/19 18:40 01/10/19 07:55 White Blood Count 5.7 K/UL (4.8-10.8) 5.5 K/UL (4.8-10.8) Red Blood Count 4.31 M/UL (4.70-6.10) L 4.57 M/UL (4.70-6.10) L Hemoglobin 12.8 G/DL (14.2-18.0) L 13.4 G/DL (14.2-18.0) L Hematocrit 37.8 % (42.0-52.0) L 40.6 % (42.0-52.0) L Mean Corpuscular Volume 88 FL (80-99) 89 FL (80-99) Mean Corpuscular Hemoglobin 29.7 PG (27.0-31.0) 29.4 PG (27.0-31.0) Mean Corpuscular Hemoglobin Concent 33.9 G/DL (32.0-36.0) 33.1 G/DL (32.0-36.0) Red Cell Distribution Width 12.0 % (11.6-14.8) 12.4 % (11.6-14.8) Platelet Count 119 K/UL (150-450) L 115 K/UL (150-450) L Mean Platelet Volume 10.4 FL (6.5-10.1) H 9.6 FL (6.5-10.1) Neutrophils (%) (Auto) 54.9 % (45.0-75.0) 56.4 % (45.0-75.0) Lymphocytes (%) (Auto) 31.6 % (20.0-45.0) 30.9 % (20.0-45.0) Monocytes (%) (Auto) 8.4 % (1.0-10.0) 7.1 % (1.0-10.0) Eosinophils (%) (Auto) 3.7 % (0.0-3.0) H 4.4 % (0.0-3.0) H Basophils (%) (Auto) 1.4 % (0.0-2.0) 1.2 % (0.0-2.0) Prothrombin Time 10.5 SEC (9.30-11.50) Prothromb Time International Ratio 1.0 (0.9-1.1) Activated Partial Thromboplast Time 26 SEC (23-33) Sodium Level 142 MMOL/L (136-145) 143 MMOL/L (136-145) Potassium Level 3.7 MMOL/L (3.5-5.1) 3.9 MMOL/L (3.5-5.1) Chloride Level 103 MMOL/L (98-107) 105 MMOL/L (98-107) Carbon Dioxide Level 29 MMOL/L (21-32) 29 MMOL/L (21-32) Anion Gap 10 mmol/L (5-15) 9 mmol/L (5-15) Blood Urea Nitrogen 19 mg/dL (7-18) H 17 mg/dL (7-18) Creatinine 1.1 MG/DL (0.55-1.30) 0.9 MG/DL (0.55-1.30) Estimat Glomerular Filtration Rate mL/min (>60) mL/min (>60) Glucose Level 92 MG/DL (74-106) 154 MG/DL (74-106) H Calcium Level 9.4 MG/DL (8.5-10.1) 9.4 MG/DL (8.5-10.1) Total Bilirubin 0.3 MG/DL (0.2-1.0) 0.3 MG/DL (0.2-1.0) Aspartate Amino Transf (AST/SGOT) 20 U/L (15-37) 21 U/L (15-37) Alanine Aminotransferase (ALT/SGPT) 20 U/L (12-78) 24 U/L (12-78) Alkaline Phosphatase 46 U/L (46-116) 48 U/L (46-116) Total Creatine Kinase 254 U/L (26-308) Troponin I 0.000 ng/mL (0.000-0.056) 0.006 ng/mL (0.000-0.056) Pro-B-Type Natriuretic Peptide 87 pg/mL (0-125) Total Protein 6.7 G/DL (6.4-8.2) 6.7 G/DL (6.4-8.2) Albumin 3.3 G/DL (3.4-5.0) L 3.2 G/DL (3.4-5.0) L Globulin 3.4 g/dL 3.5 g/dL Albumin/Globulin Ratio 1.0 (1.0-2.7) 0.9 (1.0-2.7) L Urine Color Pale yellow Urine Appearance Clear Urine pH 6.5 (4.5-8.0) Urine Specific [place] 1.010 (1.005-1.035) Urine Protein Negative (NEGATIVE) Urine Glucose (UA) Negative (NEGATIVE) Urine Ketones Negative (NEGATIVE) Urine Blood Negative (NEGATIVE) Urine Nitrite Negative (NEGATIVE) Urine Bilirubin Negative (NEGATIVE) Urine Urobilinogen Normal MG/DL (0.0-1.0) Urine Leukocyte Esterase Negative (NEGATIVE) Thyroid Stimulating Hormone (TSH) 1.855 uiU/mL (0.358-3.740) Microbiology Date/Time Source Procedure Growth Status 01/09/19 22:10 Rectum Received Hector Ordonez MD Jan 10, 2019 13:36
--- NOTE | 2019-01-10 14:45 | NUR ---
CASE MANAGEMENT:REVIEW 83 YR OLD MALE BIBA [facility] SI: SYNCOPE. BRADYCARDIA 97.2 50 18 154/70 99% ON RA TROPONIN(-) IS: TdP IM X1 500CC NS BOLUS X1 CT HEAD AND PELVIS CXR : TO TELEMETRY PLAN: CT HEAD NEURO CHECKS Q4
--- NOTE | 2019-01-10 14:49 | History and Physical ---
History of Present Illness General Date patient seen: Jan 10, 2019 Time patient seen: 17:00 Reason for Hospitalization: Multiple Trauma/Fall Present Illness HPI 83 year old man with history of CAD, CVA, DM2, COPD, former smoker, RA, chronic back pain, dementia, BPH who presented to the ED last night with a syncopal episode. PMH: As above Family Hx No premature CAD Social Hx:Former smoker Allergies: Coded Allergies: LATEX (Verified Allergy, Intermediate, 12/25/17) Medication History Scheduled Esomeprazole Magnesium (Nexium), 40 MG ORAL BID, (Reported) Finasteride (Finasteride), 5 MG ORAL DAILY, (Reported) Memantine Hcl* (Namenda*), 10 MG ORAL DAILY, (Reported) Metformin Hcl* (Metformin Hcl*), 200 MG ORAL TWICE A DAY, (Reported) [place]-3 Acid Ethyl Esters (Lovaza), 1 GM ORAL BID, (Reported) Oxybutynin Chloride (Oxybutynin Chloride), 5 MG ORAL QHS, (Reported) Tamsulosin HCl (Flomax), 0.4 MG ORAL QHS, (Reported) Miscellaneous Medications Vitamin E (Vitamin E), Unknown Dose ORAL, (Reported) Discontinued Medications Azithromycin* (Zithromax*), 250 MG ORAL DAILY, (Reported) Discontinued Reason: Therapy completed Patient History Healthcare decision maker Resuscitation status Full Code Advanced Directive on File Family History Family History: Patient reports no known family medical history. Review of Systems Constitutional: Denies: sweats, fever Eye: Denies: blurred vision ENT: Denies: ear discharge, nose pain Respiratory: Denies: cough, orthopnea, shortness of breath, stridor Cardiovascular: Denies: chest pain, edema, palpitations Gastrointestinal: Denies: constipation Genitourinary: Denies: discharge Musculoskeletal: Denies: back pain Skin: Denies: rash Neurological: Denies: headache Endocrine: Denies: excessive sweating Physical Exam General Appearance: no apparent distress, alert HEENT: atraumatic, anicteric, mucous membranes moist Neck: normal alignment, supple, normal inspection Respiratory/Chest: lungs clear, normal breath sounds, no respiratory distress Cardiovascular/Chest: normal rate, regular rhythm Abdomen: non tender, soft, no organomegaly Extremities: non-tender, normal inspection Neurologic: disassembler product II-XII grossly normal, no motor/sensory deficits, alert, oriented x 3 Last 24 Hour Vital Signs Date Time Temp Pulse Resp B/P (MAP) Pulse Ox O2 Delivery O2 Flow Rate FiO2 01/10/19 08:00 97.5 44 20 109/59 (76) 96 01/10/19 04:00 41 01/10/19 04:00 97.8 58 18 122/59 (80) 96 01/10/19 00:00 48 01/10/19 00:00 97.4 56 18 121/52 (75) 96 01/09/19 23:02 Room Air 01/09/19 22:35 97.5 50 18 131/80 (97) 98 01/09/19 22:12 98.2 41 14 144/60 100 Room Air 01/09/19 22:09 98.2 44 12 138/53 96 Room Air 01/09/19 20:05 98.2 41 12 132/50 96 Room Air 01/09/19 19:05 98.2 42 12 122/75 96 Room Air 01/09/19 19:05 42 16 Room Air 01/09/19 17:08 46 10 Room Air 01/09/19 17:07 97.2 46 10 159/66 99 Room Air 01/09/19 16:56 97.2 50 16 154/70 99 Room Air Intake and Output 01/09/19 01/10/19 19:00 07:00 Intake Total 240 ml Output Total 350 ml Balance -110 ml Intake Oral 240 ml Output Urine Total 350 ml # Voids 1 Laboratory Tests Test 01/09/19 17:40 01/09/19 18:40 01/10/19 07:55 White Blood Count 5.7 K/UL (4.8-10.8) 5.5 K/UL (4.8-10.8) Red Blood Count 4.31 M/UL (4.70-6.10) L 4.57 M/UL (4.70-6.10) L Hemoglobin 12.8 G/DL (14.2-18.0) L 13.4 G/DL (14.2-18.0) L Hematocrit 37.8 % (42.0-52.0) L 40.6 % (42.0-52.0) L Mean Corpuscular Volume 88 FL (80-99) 89 FL (80-99) Mean Corpuscular Hemoglobin 29.7 PG (27.0-31.0) 29.4 PG (27.0-31.0) Mean Corpuscular Hemoglobin Concent 33.9 G/DL (32.0-36.0) 33.1 G/DL (32.0-36.0) Red Cell Distribution Width 12.0 % (11.6-14.8) 12.4 % (11.6-14.8) Platelet Count 119 K/UL (150-450) L 115 K/UL (150-450) L Mean Platelet Volume 10.4 FL (6.5-10.1) H 9.6 FL (6.5-10.1) Neutrophils (%) (Auto) 54.9 % (45.0-75.0) 56.4 % (45.0-75.0) Lymphocytes (%) (Auto) 31.6 % (20.0-45.0) 30.9 % (20.0-45.0) Monocytes (%) (Auto) 8.4 % (1.0-10.0) 7.1 % (1.0-10.0) Eosinophils (%) (Auto) 3.7 % (0.0-3.0) H 4.4 % (0.0-3.0) H Basophils (%) (Auto) 1.4 % (0.0-2.0) 1.2 % (0.0-2.0) Prothrombin Time 10.5 SEC (9.30-11.50) Prothromb Time International Ratio 1.0 (0.9-1.1) Activated Partial Thromboplast Time 26 SEC (23-33) Sodium Level 142 MMOL/L (136-145) 143 MMOL/L (136-145) Potassium Level 3.7 MMOL/L (3.5-5.1) 3.9 MMOL/L (3.5-5.1) Chloride Level 103 MMOL/L (98-107) 105 MMOL/L (98-107) Carbon Dioxide Level 29 MMOL/L (21-32) 29 MMOL/L (21-32) Anion Gap 10 mmol/L (5-15) 9 mmol/L (5-15) Blood Urea Nitrogen 19 mg/dL (7-18) H 17 mg/dL (7-18) Creatinine 1.1 MG/DL (0.55-1.30) 0.9 MG/DL (0.55-1.30) Estimat Glomerular Filtration Rate mL/min (>60) mL/min (>60) Glucose Level 92 MG/DL (74-106) 154 MG/DL (74-106) H Calcium Level 9.4 MG/DL (8.5-10.1) 9.4 MG/DL (8.5-10.1) Total Bilirubin 0.3 MG/DL (0.2-1.0) 0.3 MG/DL (0.2-1.0) Aspartate Amino Transf (AST/SGOT) 20 U/L (15-37) 21 U/L (15-37) Alanine Aminotransferase (ALT/SGPT) 20 U/L (12-78) 24 U/L (12-78) Alkaline Phosphatase 46 U/L (46-116) 48 U/L (46-116) Total Creatine Kinase 254 U/L (26-308) Troponin I 0.000 ng/mL (0.000-0.056) 0.006 ng/mL (0.000-0.056) Pro-B-Type Natriuretic Peptide 87 pg/mL (0-125) Total Protein 6.7 G/DL (6.4-8.2) 6.7 G/DL (6.4-8.2) Albumin 3.3 G/DL (3.4-5.0) L 3.2 G/DL (3.4-5.0) L Globulin 3.4 g/dL 3.5 g/dL Albumin/Globulin Ratio 1.0 (1.0-2.7) 0.9 (1.0-2.7) L Urine Color Pale yellow Urine Appearance Clear Urine pH 6.5 (4.5-8.0) Urine Specific [place] 1.010 (1.005-1.035) Urine Protein Negative (NEGATIVE) Urine Glucose (UA) Negative (NEGATIVE) Urine Ketones Negative (NEGATIVE) Urine Blood Negative (NEGATIVE) Urine Nitrite Negative (NEGATIVE) Urine Bilirubin Negative (NEGATIVE) Urine Urobilinogen Normal MG/DL (0.0-1.0) Urine Leukocyte Esterase Negative (NEGATIVE) Thyroid Stimulating Hormone (TSH) 1.855 uiU/mL (0.358-3.740) Microbiology Date/Time Source Procedure Growth Status 01/09/19 22:10 Rectum Received Height (Feet): 5 Height (Inches): 7.00 Weight (Pounds): 170 Medications Current Medications Medications (Trade) Dose Ordered Sig/Madi Route PRN Reason Start Time Stop Time Status Last Admin Dose Admin Finasteride (Proscar) 5 mg DAILY ORAL 01/11/19 09:00 02/10/19 08:59 Heparin Sodium (Porcine) (Heparin 5000 units/ml) 5,000 units EVERY 12 HOURS SUBQ 01/10/19 09:00 02/09/19 08:59 Memantine (Namenda) 10 mg DAILY ORAL 01/11/19 09:00 02/10/19 08:59 Slava Austin MD Jan 10, 2019 14:49
[2019-01-10 16:00] VITALS: BP 133/63
--- NOTE | 2019-01-10 17:43 | Consultation ---
History of Present Illness General Date patient seen: Jan 10, 2019 Chief Complaint: Multiple Trauma/Fall Reason for Consultation: Syncope Present Illness HPI 83 year old male with history of frequent falls because of his spine issue and loss of balance for a number of years. He had a fall while going to the bathroom on Thursday night. Apparently, he does remember the actual fall, but he did not lose consciousness as it appears based on what he is describing, but nevertheless, presents to the hospital because of worsening pain in his back and his inability to walk. He did hit his head, and because of the pain, he is not able to walk. He is alert and cooperative on exam with only pain limiting his motor exam. Allergies: Coded Allergies: LATEX (Verified Allergy, Intermediate, 12/25/17) Medication History Scheduled Esomeprazole Magnesium (Nexium), 40 MG ORAL BID, (Reported) Finasteride (Finasteride), 5 MG ORAL DAILY, (Reported) Memantine Hcl* (Namenda*), 10 MG ORAL DAILY, (Reported) Metformin Hcl* (Metformin Hcl*), 200 MG ORAL TWICE A DAY, (Reported) [place]-3 Acid Ethyl Esters (Lovaza), 1 GM ORAL BID, (Reported) Oxybutynin Chloride (Oxybutynin Chloride), 5 MG ORAL QHS, (Reported) Tamsulosin HCl (Flomax), 0.4 MG ORAL QHS, (Reported) Miscellaneous Medications Vitamin E (Vitamin E), Unknown Dose ORAL, (Reported) Discontinued Medications Azithromycin* (Zithromax*), 250 MG ORAL DAILY, (Reported) Discontinued Reason: Therapy completed Patient History Healthcare decision maker Resuscitation status Full Code Advanced Directive on File Past Medical/Surgical History Past Medical/Surgical History: (1) CAD (coronary artery disease) (2) BPH (benign prostatic hyperplasia) (3) COPD/asthma (4) DM2 (diabetes mellitus, type 2) (5) Bradycardia Physical Exam General Appearance: WD/WN, no apparent distress, alert HEENT: normocephalic, anicteric, mucous membranes moist, PERRL, EOMI, pharynx normal, no JVD Neck: non-tender, normal alignment Respiratory/Chest: chest wall non-tender, normal breath sounds, no respiratory distress Cardiovascular/Chest: normal peripheral pulses, no JVD Extremities: normal inspection, non-pitting Skin Exam: warm/dry Neurologic: director staffing II-XII grossly normal, no motor/sensory deficits, alert, oriented x 3, responsive Musculoskeletal: normal muscle bulk Physical Exam Narrative CT Brain w/o Contrast 01/09/19 There is considerable periventricular deep white matter low-attenuation consistent with chronic ischemic change. There is encephalomalacia involving the anterior left temporal lobe and frontoparietal opercular region. Apparent extra-axial density seen peripheral to this, measures 15 x 7 mm. This is associated with a small bony protuberance Old lacunar infarct is seen in the left basal ganglia. No acute intracranial hemorrhage nor edema, mass effect, nor midline shift. 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 Suspect that this represents some residual and infarcted brain, but could represent a small meningioma Old left basal ganglia lacunar infarct CT Lumbar/ Sacral Spine Findings: There is anterior offset of L4 on L5, presumably due to degenerative change as no or spondylolysis is evident. The remaining bony alignment is normal. No acute fractures. Vertebral body heights are preserved. There is multilevel degenerative disc narrowing. There is failure of fusion and rotational anomaly of the left L1 transverse process. At T12-L1, there is moderate degenerative disc narrowing. There is mild circumferential annular bulge which does not significantly compromise the spinal canal. There is mild right-sided neural foraminal stenosis. At L1-2, there is moderate to severe degenerative disc narrowing. There is circumferential annular bulge. This results in mild stenosis of the spinal canal. The bulging disc and facet arthrosis results in mild narrowing of the bilateral neural foramina. At L2-3, the disc space is preserved. There is circumferential annular bulge. This in combination with ligamentum flavum hypertrophy results in at least moderate narrowing of the spinal canal. There is mild bilateral neural foraminal stenosis. There is bilateral facet arthrosis. At L3-4, there is moderate to severe degenerative disc narrowing. Circumferential annular bulge results in mild narrowing of the spinal canal. There is mild to moderate narrowing of the left neural foramen due to facet arthrosis and uncinate hypertrophy. At L4-5, there is at least moderate spinal canal stenosis due to the alignment abnormality, circumferential annular bulge, and facet hypertrophy. There is at least moderate bilateral neural foraminal compromise due to the above factors. There is mild degenerative disc narrowing At L5-S1, there is circumferential annular bulge. No significant spinal canal stenosis. There is mild narrowing of the bilateral neural foramina due to facet arthrosis. There is moderate to severe narrowing of the disc. The included extra spinal soft tissues are unremarkable. Impression: No acute bony trauma Multilevel degenerative changes, as detailed on a level bilevel basis above Last 24 Hour Vital Signs Date Time Temp Pulse Resp B/P (MAP) Pulse Ox O2 Delivery O2 Flow Rate FiO2 01/10/19 16:00 98.0 51 20 133/63 (86) 96 01/10/19 16:00 48 01/10/19 15:23 51 54 59 01/10/19 12:00 43 01/10/19 12:00 98.4 47 18 131/65 (87) 95 01/10/19 09:00 Room Air 01/10/19 08:00 45 01/10/19 08:00 97.5 44 20 109/59 (76) 96 01/10/19 04:00 41 01/10/19 04:00 97.8 58 18 122/59 (80) 96 01/10/19 00:00 48 01/10/19 00:00 97.4 56 18 121/52 (75) 96 01/09/19 23:02 Room Air 01/09/19 22:35 97.5 50 18 131/80 (97) 98 01/09/19 22:12 98.2 41 14 144/60 100 Room Air 01/09/19 22:09 98.2 44 12 138/53 96 Room Air 01/09/19 20:05 98.2 41 12 132/50 96 Room Air 01/09/19 19:05 98.2 42 12 122/75 96 Room Air 01/09/19 19:05 42 16 Room Air Intake and Output 01/09/19 01/10/19 19:00 07:00 Intake Total 240 ml Output Total 350 ml Balance -110 ml Intake Oral 240 ml Output Urine Total 350 ml # Voids 1 Laboratory Tests Test 01/09/19 18:40 01/10/19 07:55 Urine Color Pale yellow Urine Appearance Clear Urine pH 6.5 (4.5-8.0) Urine Specific [place] 1.010 (1.005-1.035) Urine Protein Negative (NEGATIVE) Urine Glucose (UA) Negative (NEGATIVE) Urine Ketones Negative (NEGATIVE) Urine Blood Negative (NEGATIVE) Urine Nitrite Negative (NEGATIVE) Urine Bilirubin Negative (NEGATIVE) Urine Urobilinogen Normal MG/DL (0.0-1.0) Urine Leukocyte Esterase Negative (NEGATIVE) White Blood Count 5.5 K/UL (4.8-10.8) Red Blood Count 4.57 M/UL (4.70-6.10) L Hemoglobin 13.4 G/DL (14.2-18.0) L Hematocrit 40.6 % (42.0-52.0) L Mean Corpuscular Volume 89 FL (80-99) Mean Corpuscular Hemoglobin 29.4 PG (27.0-31.0) Mean Corpuscular Hemoglobin Concent 33.1 G/DL (32.0-36.0) Red Cell Distribution Width 12.4 % (11.6-14.8) Platelet Count 115 K/UL (150-450) L Mean Platelet Volume 9.6 FL (6.5-10.1) Neutrophils (%) (Auto) 56.4 % (45.0-75.0) Lymphocytes (%) (Auto) 30.9 % (20.0-45.0) Monocytes (%) (Auto) 7.1 % (1.0-10.0) Eosinophils (%) (Auto) 4.4 % (0.0-3.0) H Basophils (%) (Auto) 1.2 % (0.0-2.0) Sodium Level 143 MMOL/L (136-145) Potassium Level 3.9 MMOL/L (3.5-5.1) Chloride Level 105 MMOL/L (98-107) Carbon Dioxide Level 29 MMOL/L (21-32) Anion Gap 9 mmol/L (5-15) Blood Urea Nitrogen 17 mg/dL (7-18) Creatinine 0.9 MG/DL (0.55-1.30) Estimat Glomerular Filtration Rate mL/min (>60) Glucose Level 154 MG/DL (74-106) H Calcium Level 9.4 MG/DL (8.5-10.1) Total Bilirubin 0.3 MG/DL (0.2-1.0) Aspartate Amino Transf (AST/SGOT) 21 U/L (15-37) Alanine Aminotransferase (ALT/SGPT) 24 U/L (12-78) Alkaline Phosphatase 48 U/L (46-116) Troponin I 0.006 ng/mL (0.000-0.056) Total Protein 6.7 G/DL (6.4-8.2) Albumin 3.2 G/DL (3.4-5.0) L Globulin 3.5 g/dL Albumin/Globulin Ratio 0.9 (1.0-2.7) L Thyroid Stimulating Hormone (TSH) 1.855 uiU/mL (0.358-3.740) Microbiology Date/Time Source Procedure Growth Status 01/09/19 22:10 Rectum Received Height (Feet): 5 Height (Inches): 7.00 Weight (Pounds): 170 Medications Current Medications Medications (Trade) Dose Ordered Sig/Madi Route PRN Reason Start Time Stop Time Status Last Admin Dose Admin Acetaminophen (Tylenol) 650 mg Q4H PRN ORAL Mild Pain/Temp > 100.5 01/10/19 14:48 02/09/19 14:47 01/10/19 14:55 Finasteride (Proscar) 5 mg DAILY ORAL 01/11/19 09:00 02/10/19 08:59 Heparin Sodium (Porcine) (Heparin 5000 units/ml) 5,000 units EVERY 12 HOURS SUBQ 01/10/19 09:00 02/09/19 08:59 Memantine (Namenda) 10 mg DAILY ORAL 01/11/19 09:00 02/10/19 08:59 Assessment/Plan Problem List: (1) Head trauma ICD Codes: S09.90XA - Unspecified injury of head, initial encounter SNOMED: 41966698 Qualifiers: Qualified Codes: S09.90XA - Unspecified injury of head, initial encounter (2) Syncope ICD Codes: R55 - Syncope and collapse SNOMED: 776437409 (3) Back contusion ICD Codes: S20.229A - Contusion of unspecified back wall of thorax, initial encounter SNOMED: 28161508 Status: stable Assessment/Plan Q4 hr Neuro Checks MRI previously performed in October at [facility] Pain Management as needed Reorient patient as needed PT/ OT Eval. Asa 81 mg Mabel Leon N.P. Jan 10, 2019 17:43
--- NOTE | 2019-01-10 19:48 | NUR ---
HAND-OFF: Report given to Guy.
--- NOTE | 2019-01-10 19:49 | NUR ---
NURSE NOTES: Patient is alert and oriented in bed, on cardiac monitoring. No acute distress, no c/o pain at this time. Bed locked and lowest position - call light within reach. Son is at bedside. Will continue to monitor for any acute changes.
[2019-01-10 20:00] VITALS: BP 168/83
--- NOTE | 2019-01-10 22:20 | NUR ---
NURSE NOTES: Patient mentioned to me that he takes inhalation medication at home, currently prescribed to him for asthma. Verified name of medication Spiriva and dosage with the patient's son. Patient takes medication at home for asthma. Communicated to Dr Ordonez. Dr Ordonez said to continue this medication. see orders for details.
[2019-01-11] VITALS: BP 137/68
--- NOTE | 2019-01-11 03:45 | Consultation ---
DATE OF CONSULTATION: 01/10/2019 CARDIAC CONSULTATION REASON FOR ADMISSION: Back pain. Questionable syncope. HISTORY OF PRESENT ILLNESS: This is an elderly gentleman who is known to me from one prior evaluation at [facility] a number of years ago. The patient is usually followed by Dr. Carranza and Dr. Gastelum, and he tells me that he has had a history of frequent falls because of his spine issue and loss of balance for a number of years and he had a fall while going to the bathroom on Thursday night. Apparently, he does remember the actual fall, but he did not lose consciousness as it appears based on what he is describing, but nevertheless, presents to the hospital because of worsening pain in his back and his inability to walk. He did hit his head, and because of the pain, he is not able to walk. In the emergency room, he was evaluated by Dr. Odonnell and CT scans were performed. The patient was subsequently admitted for further evaluation because he had a bradycardiac rhythm. The patient is usually followed by Dr. Carranza. Unfortunately, of his cardiac issue is really unknown. He denies any history of heart attack previously. PAST MEDICAL HISTORY: As I can ascertain from review of the records, there is a mixed cystic and solid extraaxial enhancing lesion along the left temporal lobe, which was felt to be meningioma on a prior MRI report. He has had problems with his eye and is seeing somebody at for whole CT maxilla and he also has a history of multiple falls secondary to cervical spondylosis and myelopathy and history of asthma with exacerbation, history of senile dementia. He is followed by Dr. Sandrita Whittaker spondylolisthesis and intractable pain, who had recommended spine surgery for him previously. He has rheumatoid arthritis, possible history of prior CVA although that is not completely clear. He does have a history of myocardial infarction and apparently had a cardiac catheterization at [facility] and did not need surgery previously. He denies any diabetes or high blood pressure. No history of cancer, stroke, hepatitis, or tuberculosis. He does have history of asthma. No ulcers. No kidney or liver problems. No thyroid problems, anemia, HIV, or AIDS. SOCIAL HISTORY: He used to smoke, but he quit that 20 years ago, 1 pack a day for approximately 40 years. He does not drink alcoholic beverages. ALLERGIES: No known drug allergies, but he does have allergies to LATEX. MEDICATIONS: As much as I can ascertain from review of the care everywhere, notes at [facility] include aspirin 81 mg, Lexapro 10 mg, Namenda 10 mg twice daily, renal vitamins, and Aricept 10 mg nightly. REVIEW OF SYSTEMS: GASTROINTESTINAL: Negative. GENITOURINARY: Negative. He does have 1 to 2 . PULMONARY: Occasional coughing and wheezing. CONSTITUTIONAL: Negative. NEUROLOGICALLY: Basically, history of imbalance and frequent falls. No blurred vision or double vision. No spinning sensations noted. CARDIAC: Denies any chest pain or pressure. No PND. No orthopnea. He uses two pillows chronically. He does have some dyspnea on exertion. He used to be able to walk, although over the past three to four days after the fall, he has not had significant ability to walk. PHYSICAL EXAMINATION: GENERAL: Shows to be elderly gentleman, in no respiratory distress. NECK: Supple. No jugular venous distention. No bruits noted. LUNGS: Relatively clear to auscultation and percussion. CARDIAC: S1 is normal. S2 is normal. Regular rhythm. Bradycardic. No heaves or thrills noted. ABDOMEN: Soft and nontender. Positive bowel sounds. EXTREMITIES: There is no clubbing, cyanosis, nor is there any edema. NEUROLOGICAL: He is awake, alert, and responsive. LABORATORY DATA: He has got a white count of 5.5, hemoglobin 13.4, and a platelet count of 115,000. Sodium is 143, potassium 3.9, chloride 105, bicarb 29, BUN 17, creatinine 0.9, and glucose of 154. Calcium is normal. Liver function tests are normal. Troponin is 0.006 and 0.000 with albumin of 3.2. TSH of 1.85. His INR is 1.0 and a PTT of 26. His urinalysis appears to be relatively normal. He did have x-ray of his chest performed yesterday that showed basically no acute findings and he did have a CT scan of his head yesterday that is negative for acute intracranial bleed or mass effect, chronic age-related changes, and a 15 x 7 tissue peripherally to the above infarction, suspect these are residual and infarct related, could be small meningioma. 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 CT scan of the pelvis was performed and showed no acute bony trauma. Prominent prostate being noted. A CT scan of the spine shows no acute bony trauma. Multilevel degenerative changes. His electrocardiogram shows sinus bradycardia at a rate of 42. No significant ST or T-wave abnormalities. ASSESSMENT PARMA PLAN: 1. Non-syncopal fall. 2. Sinus bradycardia probably the effect of Aricept. 3. Cervical spondylolisthesis. 4. Cervical myelopathy. 5. Obesity. 6. History of asthma. 7. History of gastroesophageal reflux disease. PLAN: This patient was seen in cardiac consultation. The patient's fall appears to be nonsyncopal. He actually does remember the fall. He did not lose consciousness as much as . Nevertheless, he is somewhat bradycardiac and he has been monitored on telemetry. No significant pauses or bradycardia is noted, although he has sinus bradycardia at the rate of 42. He has got an excellent blood pressure and does not need a treatment so far. He does have a component of pain that is limiting his mobility. His pelvic CT and lumbosacral spine CT are all negative. He has had a history of problems with his back on prior occasions. Cardiac enzymes are negative. The patient will have an echocardiogram tomorrow and he will have a set of orthostatic vitals to be checked today. His labs appeared to be relatively adequate. We will consider an orthopedic evaluation for initially to walk and possibly even a neurology evaluation. Hector Ordonez M.D. DR: YANDY JOB#: [id number] CC:
[2019-01-11 04:20] VITALS: BP 131/62
[2019-01-11 07:20] LABS: ANION GAP 6 mmol/L (5-15); BLOOD UREA NITROGEN 12 mg/dL (7-18); CALCIUM 9.4 MG/DL (8.5-10.1); CARBON DIOXIDE 30 MMOL/L (21-32); CHLORIDE 107 MMOL/L (98-107); CREATININE 0.9 MG/DL (0.55-1.30); POTASSIUM 3.8 MMOL/L (3.5-5.1); SODIUM 143 MMOL/L (136-145)
--- NOTE | 2019-01-11 07:30 | NUR ---
NURSE NOTES: Received patient from CATALINO Sinha. Patient VS stable at this time. Patient sleeping at this time. Patient showing sinus bradycardia on the hall monitor. Dr Ordonez is aware. Patient is on room air. Patient uses a urinal to void but is reported to have episodes of incontinence. Patient has a left head laceration with clean, dry, and intact dressing. Patient received the head laceration due to a fall prior to admission. Patient head CT was negative for acute trauma. Patient has a neuro consult ordered for today. Patient has physical therapy evaluation scheduled for this morning. Will follow up with PT and neurologist. Addendum: 01/11/19 at 0823 by Kavitha Logan RN Patient bed in low position with bed alarm on and call light in reach at this time.
[2019-01-11 08:00] VITALS: BP 150/71
[2019-01-11] MEDS: Heparin 5000 units/ml inj SUBQ SCH ×2 (09:00→21:00)
[2019-01-11] MEDS: Memantine 10mg tab ORAL SCH (09:13)
--- NOTE | 2019-01-11 09:30 | NUR ---
PT EVALUATION NOTE Patient seen for initial evaluation, see complete evaluation for details. Patient presents with generalized weakness and mobility deficits. Patient will benefit from skilled inpatient PT intervention to address strength, balance, safety and functional mobility. Anticipate discharge home with home PT and family assistance once cleared by MD. No DME needs anticipated at this time. Addendum: 01/11/19 at 1313 by TOM WHITFIELD PT Amended: Links added.
[2019-01-11 12:00] VITALS: BP 149/68
--- NOTE | 2019-01-11 14:38 | Cardiology Progress Note ---
Assessment/Plan Assessment/Plan 1. Non-syncopal fall. 2. Sinus bradycardia probably the effect of Aricept. 3. Cervical spondylolisthesis. 4. Cervical myelopathy. 5. Obesity. 6. History of asthma. 7. History of gastroesophageal reflux disease. awati neuro input did walk with pt this am: Patient presents with generalized weakness and mobility deficits. Patient will benefit from skilled inpatient PT intervention to address strength, balance, safety and functional mobility. may benefit from short stay at [facility] for PT tele sinus hira 45-56 lab look ok is off aricept will see if hr improves will try to get in touch with mail messenger dr huston to see if bardy is chronic all trop neg orthsotatic vital neg yest Subjective ROS Limited/Unobtainable: Yes Cardiovascular: Denies: chest pain, lightheadedness, palpitations Respiratory: Denies: shortness of breath Gastrointestinal/Abdominal: Denies: abdominal pain Genitourinary: Denies: burning Objective Last 24 Hour Vital Signs Date Time Temp Pulse Resp B/P (MAP) Pulse Ox O2 Delivery O2 Flow Rate FiO2 01/11/19 12:00 96.9 50 20 149/68 (95) 95 01/11/19 12:00 51 01/11/19 09:00 Room Air 01/11/19 08:00 98.1 52 20 150/71 (97) 96 01/11/19 08:00 45 01/11/19 04:27 45 01/11/19 04:20 97.9 74 18 131/62 (85) 97 01/11/19 00:00 97.9 55 18 137/68 (91) 97 01/11/19 00:00 46 01/10/19 22:46 60 16 95 Room Air 21 01/10/19 22:43 58 16 95 Room Air 21 01/10/19 21:00 Room Air 01/10/19 20:00 98.5 57 18 168/83 (111) 97 01/10/19 20:00 56 01/10/19 16:00 98.0 51 20 133/63 (86) 96 01/10/19 16:00 48 01/10/19 15:23 51 54 59 General Appearance: other - sleeping Neck: supple Cardiovascular: normal rate, regular rhythm Respiratory/Chest: lungs clear Abdomen: normal bowel sounds, non tender, soft Extremities: no swelling Intake and Output 01/10/19 01/11/19 19:00 07:00 Intake Total 480 ml 100 ml Output Total 550 ml Balance -70 ml 100 ml Intake Oral 480 ml 100 ml Output Urine Total 550 ml # Voids 2 3 # Bowel Movements 1 Laboratory Tests Test 01/11/19 06:34 Sodium Level 143 MMOL/L (136-145) Potassium Level 3.8 MMOL/L (3.5-5.1) Chloride Level 107 MMOL/L (98-107) Carbon Dioxide Level 30 MMOL/L (21-32) Anion Gap 6 mmol/L (5-15) Blood Urea Nitrogen 12 mg/dL (7-18) Creatinine 0.9 MG/DL (0.55-1.30) Estimat Glomerular Filtration Rate mL/min (>60) Glucose Level 111 MG/DL (74-106) H Hemoglobin A1c 5.9 % (4.3-6.0) Calcium Level 9.4 MG/DL (8.5-10.1) Magnesium Level 2.2 MG/DL (1.8-2.4) Microbiology Date/Time Source Procedure Growth Status 01/09/19 22:10 Rectum Received Hector Ordonez MD Jan 11, 2019 14:38
[2019-01-11 16:00] VITALS: BP 157/82
[2019-01-11] MEDS: Lyrica 75mg cap ORAL SCH (17:40)
--- NOTE | 2019-01-11 18:07 | NUR ---
DISCHARGE PLANNING: NOTE CLINICALS FAXED TO [facility] F: [phone]
--- NOTE | 2019-01-11 18:50 | Consultation ---
Consult Note Consult Note NEUROLOGY CONSULTATION: Full note dictated #[id number]. 83-year-old, right-handed, gentleman, who does have a past history of rheumatoid arthritis, DM, coronary artery disease with myocardial infarction, cognitive decline, and a left temporal meningioma. He also has an approximately 3-year history of progressive gait problems which in the last few months have worsened significantly to a point that he needs a walker to walk with an in addition has had multiple falls. He was apparently walking to the bathroom and his legs gave way and he fell down and as a result of that he was brought into the [facility] emergency room and has since been admitted. When he did fall he lacerated his left scalp and as a result of that the wound has been bandaged. This consultation was requested to evaluate the patient for his multiple falls. On exam: He was disoriented to the exact date. Memory: 3/3-0, 2/3-1 and 3 (3 trials) Trump only. Visual spatial function impaired. Trace right 7 central facial paresis. Grade 4/5 power in the iliopsoas muscles bilaterally. 1+ reflexes at the biceps triceps and brachioradialis. 0 at both knees and ankles. Plantar responses flexor. Needs support to stand up. Walks with paraparetic gait with support. IMPRESSION: 1. 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 MRI performed at [facility] on 11/01/2018 revealed multilevel degenerative disease with central canal stenosis most marked at the L4-5 levels. 2. Mild right seventh central facial paresis most probably related to left meningioma. 3. Cognitive dysfunction most probably related to primary degenerative process. RECOMMENDATIONS: 1. The patient should be worked up thoroughly for treatable causes of cognitive decline and neuropathy. 2. The patient may benefit from a 7-day course of Medrol 4 mg 3 times a day for his spinal stenosis. 3. If no significant improvement is seen with the Medrol then surgical decompression should be considered seriously. 4. Physical and Occupational Therapy to mobilize patient. Avel Alfaro M.D., M.S.P.H. Avel Alfaro MD Jan 11, 2019 18:50
--- NOTE | 2019-01-11 19:35 | NUR ---
NURSE NOTES: Received pt. and report from CATALINO Plummer. Observe pt. resting in bed with both eyes closed. Pt. is A/Ox4. 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 Bed is in the lowest position and locked. Call light within reach. No signs and symptom of acute distress noted at this time. Will continue plan of care.
--- NOTE | 2019-01-11 19:45 | NUR ---
HAND-OFF: Report given to CATALINO Baker. patient VS stable at this time with no sign of acute distress.
[2019-01-11 20:00] VITALS: BP 131/64
--- NOTE | 2019-01-11 21:21 | NUR ---
NURSE NOTES: Held Heparin subQ due to low platelets of 115.
--- NOTE | 2019-01-11 21:28 | Cardiology Report ---
APPROVED REPORT EKG Measurement Heart [id number] IA 202P53 [id number] Marked sinus bradycardia Inferior infarct, age undetermined Abnormal ECG
--- NOTE | 2019-01-11 21:29 | Cardiology Report ---
APPROVED REPORT EKG Measurement Heart [id number] [place] 200P80 [id number] DUq063 Marked sinus bradycardia Cannot rule out Inferior infarct, age undetermined Cannot rule out Anterior infarct, age undetermined Abnormal ECG
--- NOTE | 2019-01-11 23:00 | Consultation ---
DATE OF CONSULTATION: 01/11/2019 NEUROLOGY CONSULTATION CONSULTING PHYSICIAN: Avel Alfaro M.D. REQUESTING PHYSICIAN: Hector Ordonez M.D. HISTORY: Mr. Rai Boo is an 83-year-old, right-handed, gentleman, who does have a past history of hypertension, coronary artery disease, diabetes mellitus, chronic obstructive pulmonary disease, rheumatoid arthritis, left temporal meningioma, cognitive decline, benign prostatic hypertrophy, chronic back pain, and lumbosacral spinal stenosis. He was functioning relatively well until January 10, 2019 when he got up to go to the bathroom and his legs collapsed as a result of which he fell down. He lacerated his left scalp and as a result of that was brought into the [facility] Emergency Room and has since been admitted. As per the patient, for the last three years, he has had progressive gait problems. In the last month or so, these problems have worsened to a point that he needs a walker to walk with and in addition, has had multiple falls. He denies any weakness in the upper extremities, problems with speech, problems with language, problems with vision, but has noticed that his memory is not as sharp as it used to be. He, however, is unable to tell me how long the memory has not been very good. PAST MEDICAL HISTORY: Significant for rheumatoid arthritis, diabetes mellitus, coronary artery disease with myocardial infarction in the past, cognitive decline, left temporal meningioma, and a 3-year history of progressive gait problems, which in the past have been worked up with scans that have revealed spinal stenosis. There is also a history of cognitive decline. FAMILY HISTORY: Nothing significant as per the patient. PERSONAL HISTORY: Home: He lives alone in an apartment. 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 Habits: He used to smoke in the past but stopped smoking numerous years ago. He denies use of alcohol or illicit drugs. MEDICATIONS: Present medications include Lyrica 75 mg tid, Proscar 5 mg daily, Namenda 10 mg daily, Spiriva inhaler, Tylenol p.r.n., and heparin for DVT prophylaxis. PHYSICAL EXAMINATION: GENERAL: He is a well-developed, well-nourished, pleasant gentleman, lying in bed, in no acute distress. VITAL SIGNS: Pulse 54/minute, blood pressure 157/82 mmHg, respirations 20/minute, and temperature 98.6 degrees Fahrenheit. HEAD: Normocephalic and atraumatic. EENT: Examination benign. NECK: No neck rigidity was observed. NEUROLOGIC EXAMINATION: MENTAL STATUS EXAMINATION: He was awake and alert. He was oriented to person, place, and time except for the exact date. He was able to recall 3/3 words immediately, but could only remember 2/3 words in 1 minute and 3 minutes even on the third trial. He knew that Elmer is President, but could not remember Presidents prior to that. His mathematical skills were fairly good. His visuospatial function was impaired. SPEECH: He had no dysarthria. LANGUAGE: He had a significant anomia for low and mid frequency words. However, Jordanian is his second language. CRANIAL NERVE EXAMINATION: II: The visual simon were intact on confrontation testing. III, IV & : The external ocular movements were full and the pupils 3 mm in diameter, equal, round, regular, and reactive to light. V: He had normal facial sensations, and the temporales, masseters, and pterygoids functioned normally. VII: He had a trace right VII central facial paresis. VIII: He was able to hear well bilaterally and had no nystagmus. IX: The palate moved symmetrically on phonation. X: He had no hoarseness of voice. XI: The sternocleidomastoids and trapezii functioned normally. XII: The tongue was in the midline without any fasciculations or atrophy. MOTOR SYSTEM: The tone was normal in all four extremities. Examination of muscle mass revealed no focal wasting. Examination of power revealed G 5/5 power except for G 4/5 power in the iliopsoas muscles bilaterally. SENSORY EXAMINATION: He had intact sensations to pinprick, light touch, and graphesthesia. Position sense was diminished in the toes bilaterally, but was normal in the fingers bilaterally. COORDINATION: He performed well on wseajm-[id number]-azoh testing. He was unable to perform [id number] testing. Romberg test could not be performed because even with eyes open when he was made to stand with his feet together, he was unsteady. REFLEXES: 1+ and bilaterally symmetrical at the biceps, triceps, and brachioradialis and 0 at both knees and ankles. The plantar responses were flexor bilaterally. STANCE: He needed support to stand up. GAIT: He walked with support with a paraparetic gait. DIAGNOSTIC IMPRESSION: 1. Mr. Rai Boo is an 83-year-old, right-handed, gentleman, with a past history of rheumatoid arthritis, diabetes mellitus, high blood pressure, coronary artery disease with myocardial infarction, cognitive decline, a left temporal meningioma, and an approximately 3-year history of progressive gait problems, which in the last few months have worsened significantly to the point that he needs a walker to walk with and in spite of that, has had multiple falls. 2. On neurological examination, at this time, he is disoriented to the exact date, has significant problems with recent and remote memory and visuospatial function. He also has a right VII central facial paresis, a significant proximal paraparesis involving the iliopsoas muscles bilaterally, inability to perform Romberg test, diminished deep tendon reflexes in the upper extremities with loss of deep tendon reflexes in the lower extremities, needing support to stand up, and walking with a paraparetic gait with support. 3. Laboratory data obtained thus far have revealed that he is mildly anemic with a hemoglobin of 12.8 G. His chemistry panel revealed an elevated BUN at 19 when he came in with a creatinine of 1.1. His albumin was low at 3.3. His TSH was normal. His urinalysis was benign. 4. The patient's history, neurological examination, and laboratory data are most compatible with lumbosacral spinal stenosis with significant paraparesis leading to falls. His last MRI performed at [facility] on 11/01/2018 revealed multilevel degenerative disease with central canal stenosis most marked at L4-5 levels. 5. The patient does have cognitive dysfunction most probably related to a mild primary degenerative process. 6. His mild right seventh central facial paresis is most probably related to his left meningioma. RECOMMENDATIONS: 1. The patient was given an explanation of the above-mentioned findings. 2. He should be worked up thoroughly for treatable causes of cognitive decline and neuropathy. 3. The patient may benefit from a seven-day course of Medrol 4 mg tid for spinal stenosis making sure that his blood sugars do not go out of control. 4. If no significant improvement is seen with the Medrol then surgical decompression should be considered seriously to improve quality of life. 5. Physical and occupational therapy should be started to mobilize the patient. Thank you for entrusting me with the care of Mr. Boo. I shall follow him with you. Avel Alfaro M.D., M.S.P.H. DR: KATY JOB#: [id number]
[2019-01-12] VITALS: BP 132/59
--- NOTE | 2019-01-12 00:03 | Neurology Progress Note ---
Interim History Interim History ROS Limited/Unobtainable: Yes Objective Physical Exam Last Vital Signs Date Time Temp Pulse Resp B/P (MAP) Pulse Ox O2 Delivery O2 Flow Rate FiO2 01/11/19 21:39 60 18 94 Room Air 21 01/11/19 20:00 98.7 131/64 (86) Laboratory Tests Test 01/11/19 06:34 01/11/19 20:45 Sodium Level 143 MMOL/L (136-145) Potassium Level 3.8 MMOL/L (3.5-5.1) Chloride Level 107 MMOL/L (98-107) Carbon Dioxide Level 30 MMOL/L (21-32) Anion Gap 6 mmol/L (5-15) Blood Urea Nitrogen 12 mg/dL (7-18) Creatinine 0.9 MG/DL (0.55-1.30) Estimat Glomerular Filtration Rate mL/min (>60) Glucose Level 111 MG/DL (74-106) H Hemoglobin A1c 5.9 % (4.3-6.0) Calcium Level 9.4 MG/DL (8.5-10.1) Magnesium Level 2.2 MG/DL (1.8-2.4) Erythrocyte Sedimentation Rate 32 MM/HR (0-20) H Total Protein (PEP) Pending Albumin (PEP) Pending Globulin (PEP) Pending Albumin/Globulin Ratio Pending Dacls-5-Jhpqgdomu Pending Uuhcq-2-Ecksjrrrv Pending Beta Globulins Pending Beta Gamma Globulin Pending PEP Abnormal Protein Bands Pending Protein Electrophoresis Interpret Pending Vitamin B12 Level 620 PG/ML (193-986) Vitamin D 25-Hydroxy Pending 25-Hydroxy Vitamin D2 Pending 25-Hydroxy Vitamin D3 Pending Folate 44.9 NG/ML (8.6-58.9) Rapid Plasma Reagin Pending Impression/Recommendations Problems: (1) Head trauma (2) Syncope (3) Back contusion Mabel Leon N.P. Jan 12, 2019 00:03
--- NOTE | 2019-01-12 00:03 | Neurology Progress Note ---
Interim History Interim History ROS Limited/Unobtainable: Yes Objective Physical Exam Last Vital Signs Date Time Temp Pulse Resp B/P (MAP) Pulse Ox O2 Delivery O2 Flow Rate FiO2 01/11/19 21:39 60 18 94 Room Air 21 01/11/19 20:00 98.7 131/64 (86) Laboratory Tests Test 01/11/19 06:34 01/11/19 20:45 Sodium Level 143 MMOL/L (136-145) Potassium Level 3.8 MMOL/L (3.5-5.1) Chloride Level 107 MMOL/L (98-107) Carbon Dioxide Level 30 MMOL/L (21-32) Anion Gap 6 mmol/L (5-15) Blood Urea Nitrogen 12 mg/dL (7-18) Creatinine 0.9 MG/DL (0.55-1.30) Estimat Glomerular Filtration Rate mL/min (>60) Glucose Level 111 MG/DL (74-106) H Hemoglobin A1c 5.9 % (4.3-6.0) Calcium Level 9.4 MG/DL (8.5-10.1) Magnesium Level 2.2 MG/DL (1.8-2.4) Erythrocyte Sedimentation Rate 32 MM/HR (0-20) H Total Protein (PEP) Pending Albumin (PEP) Pending Globulin (PEP) Pending Albumin/Globulin Ratio Pending Ipzjn-3-Lwvcdopne Pending Fzkzk-4-Rdkhypkkr Pending Beta Globulins Pending Beta Gamma Globulin Pending PEP Abnormal Protein Bands Pending Protein Electrophoresis Interpret Pending Vitamin B12 Level 620 PG/ML (193-986) Vitamin D 25-Hydroxy Pending 25-Hydroxy Vitamin D2 Pending 25-Hydroxy Vitamin D3 Pending Folate 44.9 NG/ML (8.6-58.9) Rapid Plasma Reagin Pending Impression/Recommendations Problems: (1) Head trauma (2) Syncope (3) Back contusion Mabel Leon N.P. Jan 12, 2019 00:03
[2019-01-12 04:00] VITALS: BP 139/69
--- NOTE | 2019-01-12 07:30 | NUR ---
NURSE NOTES: Received report from CATALINO Baker. Patient asleep and is in stable condition. No acute distress/SOB noted. Will continue plan of care.
--- NOTE | 2019-01-12 07:48 | Cardiology Report ---
APPROVED REPORT EKG Measurement Heart [id number] CO [id number] ULp122 Sinus bradycardia with premature atrial complexes Inferior infarct, age undetermined Abnormal ECG
--- NOTE | 2019-01-12 07:58 | NUR ---
HAND-OFF: Report given to CATALINO Denise.
[2019-01-12 08:00] VITALS: BP 160/73
[2019-01-12] MEDS: Memantine 10mg tab ORAL SCH (08:49)
[2019-01-12] MEDS: Lyrica 75mg cap ORAL SCH ×3 (08:49→17:17)
[2019-01-12] MEDS: Heparin 5000 units/ml inj SUBQ SCH ×2 (08:51→21:00)
--- NOTE | 2019-01-12 09:57 | NUR ---
NURSE NOTES: Talked with Dr. Sadler and ordered off-tele order for MRI brain. Will continue plan of care.
--- NOTE | 2019-01-12 11:13 | NUR ---
CASE MANAGEMENT:REVIEW 01/12/19 SI: NON SYNCOPAL FALL 97.3 46 20 160/73 95% on ra IS:MEDROL PO TID LYRICA PO TID PROSCAR PO QD NAMENDA PO QD SPIRIVA INH QHS HEPARIN SQ Q12 : TELEMETRY STATUS DCP: FROM HOME...[facility] AND HAS BEEN ACCEPTED PLAN: MRI BRAIN
--- NOTE | 2019-01-12 11:16 | NUR ---
DISCHARGE PLANNING RECEIVED CALL FROM SHANTELL AT [facility] T: [phone] THEY WILL ACCEPT PATIENT AT TIME OF DISCHARGE
[2019-01-12 12:00] VITALS: BP 119/65
--- NOTE | 2019-01-12 12:55 | NUR ---
MRI BRAIN COMPLETED
--- NOTE | 2019-01-12 15:55 | Diagnostic Imaging Report ---
Indication: Syncope, history of head trauma Technique: sagittal T1 fast spin echo, axial T1 FLAIR, axial, coronal, and sagittal T2 FLAIR, axial T2 FS PROPELLER, axial T2* GRE, axial diffusion weighted images. ADC and exponential ADC maps generated Comparison: Comparison made to brain CT dated 01/09/2019 Findings: Unusual mostly cystic partially solid extra-axial mass is seen expanding the anterior sylvian fissure. This measures 3.8 cm AP by 2.6 cm transverse by 3.9 cm craniocaudad. This demonstrates a large unilocular cystic component, with a thin rim along the anterior, posterior, and medial border, and a nodular area of soft tissue at the dural surface. The soft tissue component is irregular in shape, measures approximately 1.7 cm AP by 0.8 cm thick by the cyst contents are isointense to CSF on the T1 and T2-weighted images, slightly hyperintense to CSF on the T2 FLAIR images. The nodular component is isointense to brain parenchyma on the T1, T2, T2 FLAIR sequences, and demonstrates high signal on the diffusion weighted images. There is local mass effect, manifested by superior displacement of the frontal operculum and inferior displacement of the temporal operculum. No acute intracranial hemorrhage nor edema. No midline shift. The basilar cisterns are patent. No other foci of parenchymal diffusion restriction demonstrated. There is age-related enlargement of the ventricles and extra axial CSF spaces. There is fairly extensive periventricular deep white matter high T2 signal , consistent with chronic ischemic change. There is evidence of prior bilateral cataract surgery. The right maxillary sinus demonstrates a small polyp versus mucous retention cyst. The vascular flow voids are preserved. There are somewhat symmetric bilateral basal ganglia lacunar infarcts, large on the left than on the right, versus prominent perivascular spaces. Impression: 3.8 x 2.6 x 3.9 cm extra-axial mostly cystic with thin rim and dural based nodular component occupying the anterior sylvian fissure, as described. This is an unusual lesion. 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 Another differential possibility is an atypical intracranial epidermoid cyst. Findings could also represent a typical meningioma subjacent to an arachnoid cyst, but this is deemed less likely given the slightly abnormal appearance of the cyst contents and the susceptibility of the rim. Lesion results in local mass effect, as described. 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 Hanna at the time of interpretation
[2019-01-12 16:00] VITALS: BP 132/64
--- NOTE | 2019-01-12 18:48 | Neurology Progress Note ---
Interim History Interim History Interim History Mr. Boo feels better today. He took a 5 minute walk today. He felt stronger in his legs. He denies any new neurologic symptoms. The mind is clear. Review of Systems Neuro Review of Systems Benign. Objective Physical Exam Last Vital Signs Date Time Temp Pulse Resp B/P (MAP) Pulse Ox O2 Delivery O2 Flow Rate FiO2 01/12/19 16:00 50 01/12/19 16:00 98.3 21 132/64 (86) 95 01/12/19 09:00 Room Air 01/11/19 21:39 21 Laboratory Tests Test 01/11/19 20:45 Erythrocyte Sedimentation Rate 32 MM/HR (0-20) H Total Protein (PEP) Pending Albumin (PEP) Pending Globulin (PEP) Pending Albumin/Globulin Ratio Pending Gcclx-4-Ksxkgplqu Pending Inrtw-5-Lzglehfwt Pending Beta Globulins Pending Beta Gamma Globulin Pending PEP Abnormal Protein Bands Pending Protein Electrophoresis Interpret Pending Vitamin B12 Level 620 PG/ML (193-986) Vitamin D 25-Hydroxy Pending 25-Hydroxy Vitamin D2 Pending 25-Hydroxy Vitamin D3 Pending Folate 44.9 NG/ML (8.6-58.9) Rapid Plasma Reagin Pending Neurologic Exam Objective PHYSICAL EXAMINATION: GENERAL: He is a well-developed, well-nourished, pleasant gentleman, lying in bed, in no acute distress. HEAD: Normocephalic and atraumatic. EENT: Examination benign. NECK: No neck rigidity was observed. NEUROLOGIC EXAMINATION: MENTAL STATUS EXAMINATION: He was awake and alert. He was oriented to person, place, and time except for the exact date. He was able to recall 3/3 words immediately, but could only remember 2/3 words in 1 minute and 3 minutes even on the third trial. He knew that Elmer is President, but could not remember Presidents prior to that. His mathematical skills were fairly good. His visuospatial function was impaired. SPEECH: He had no dysarthria. LANGUAGE: He had a significant anomia for low and mid frequency words. However , Irish is his second language. CRANIAL NERVE EXAMINATION: II: The visual simon were intact on confrontation testing. III, IV & : The external ocular movements were full and the pupils 3 mm in diameter, equal, round, regular, and reactive to light. V: He had normal facial sensations, and the temporales, masseters, and pterygoids functioned normally. VII: He had a trace right VII central facial paresis. VIII: He was able to hear well bilaterally and had no nystagmus. IX: The palate moved symmetrically on phonation. X: He had no hoarseness of voice. XI: The sternocleidomastoids and trapezii functioned normally. XII: The tongue was in the midline without any fasciculations or atrophy. MOTOR SYSTEM: The tone was normal in all four extremities. Examination of muscle mass revealed no focal wasting. Examination of power revealed G 5/5 power in all muscle groups, including the iliopsoas. SENSORY EXAMINATION: He had intact sensations to pinprick, light touch, and graphesthesia. Position sense was diminished in the toes bilaterally, but was normal in the fingers bilaterally. COORDINATION: He performed well on pgbkix-zh-gedt testing. He was unable to perform ohzk-kb-[id number] testing. Romberg test could not be performed because even with eyes open when he was made to stand with his feet together, he was unsteady. REFLEXES: 1+ and bilaterally symmetrical at the biceps, triceps, and brachioradialis and 0 at both knees and ankles. The plantar responses were flexor bilaterally. STANCE: He needed contact guard to stand up. GAIT: He walked with contact guard. Impression/Recommendations Diagnostic Impression 1. Mr. Rai Boo is an 83-year-old, right-handed, gentleman, with a past history of rheumatoid arthritis, diabetes mellitus, high blood pressure, coronary artery disease with myocardial infarction, cognitive decline , a left temporal meningioma, and an approximately 3-year history of progressive gait problems, which in the last few months have worsened significantly to the point that he needs a walker to walk with and in spite of that, has had multiple falls. 2. He feels better today. He took a 5 minute walk today. He felt stronger in his legs. He denies any new neurologic symptoms. The mind is clear. 3. On neurological examination, at this time, he is disoriented to the exact date, has significant problems with recent and remote memory and visuospatial function. He also has a right VII central facial paresis. The paraparesis involving the iliopsoas muscles has resolved. He continues to have inability to perform Romberg test, diminished deep tendon reflexes in the upper extremities with loss of deep tendon reflexes in the lower extremities. He needs contact guard to stand and walk. 4. Laboratory data on my initial evaluation revealed that he was mildly anemic with a hemoglobin of 12.8 G. His chemistry panel revealed an elevated BUN at 19 when he came in with a creatinine of 1.1. His albumin was low at 3.3. His TSH was normal. His urinalysis was benign. 5. Further laboratory tests have revealed a normal B12 and Folate level. 6. The Brain MRI again revealed a left temporal cystic meningioma. 7. The patient's history, neurological examination, and laboratory data are most compatible with lumbosacral spinal stenosis with significant paraparesis leading to falls. His last MRI performed at [facility] on 11/01/2018 revealed multilevel degenerative disease with central canal stenosis most marked at L4-5 levels. He has responded exceedingly well to steroids. 8. The patient does have cognitive dysfunction most probably related to a mild primary degenerative process. 9. His mild right seventh central facial paresis is most probably related to his left meningioma. Recommendations 1. Continue present management. 2. Medrol 4 mg tid with meals for a total of 21 doses. 3. If no significant improvement is seen with the Medrol then surgical decompression should be considered seriously to improve quality of life. 4. Physical and occupational therapy to mobilize the patient. Avel Alfaro M.D., M.S.P.H. Avel Alfaro MD Jan 12, 2019 18:48
--- NOTE | 2019-01-12 19:10 | NUR ---
NURSE NOTES: Received pt. and report from CATALINO Denise. Observe pt. resting in bed with both eyes closed. Pt. is A/Ox4. groundwater monitoring technician is in placed, IV site intact, asymptomatic, and patent. Bed is in the lowest position and locked. Call light within reach. No signs/symptoms of acute distress noted at this time. Will continue plan of care.
--- NOTE | 2019-01-12 19:18 | NUR ---
HAND-OFF: Report given to CATALINO Baker. Patient is in stable condition. Endorsed plan of care.
[2019-01-12 20:00] VITALS: BP 136/73
--- NOTE | 2019-01-12 20:14 | Cardiology Progress Note ---
Assessment/Plan Assessment/Plan 1. Non-syncopal fall. 2. Sinus bradycardia probably the effect of Aricept. 3. Cervical spondylolisthesis. 4. Cervical myelopathy. 5. Obesity. 6. History of asthma. 7. History of gastroesophageal reflux disease. awati neuro input did walk with pt this am: Patient presents with generalized weakness and mobility deficits. Patient will benefit from skilled inpatient PT intervention to address strength, balance, safety and functional mobility. tele sinus hira 45-56 lab look ok is off aricept will see if hr improves tele sinus mri resuult availabe has a bed ar aru at [facility] will dc ther i have explained to the pt regarding need fopo steroids adn if not better decompression will dc there in am d/w dr patiño yest d/w dr huston yest Subjective Cardiovascular: Denies: chest pain, lightheadedness Respiratory: Denies: shortness of breath Gastrointestinal/Abdominal: Denies: abdominal pain Genitourinary: Denies: burning Objective Last 24 Hour Vital Signs Date Time Temp Pulse Resp B/P (MAP) Pulse Ox O2 Delivery O2 Flow Rate FiO2 01/12/19 16:00 50 01/12/19 16:00 98.3 49 21 132/64 (86) 95 01/12/19 12:00 59 01/12/19 12:00 97.9 59 21 119/65 (83) 95 01/12/19 09:00 Room Air 01/12/19 08:00 38 01/12/19 08:00 97.3 46 20 160/73 (102) 95 01/12/19 04:00 97.1 47 18 139/69 (92) 97 01/12/19 03:27 43 01/12/19 00:00 98.2 57 18 132/59 (83) 95 01/11/19 23:31 53 01/11/19 21:39 60 18 94 Room Air 21 01/11/19 21:37 60 18 94 Room Air 21 01/11/19 21:00 Room Air General Appearance: no apparent distress, alert Neck: supple Cardiovascular: normal rate Respiratory/Chest: lungs clear, normal breath sounds Abdomen: normal bowel sounds, non tender, soft Extremities: no swelling Intake and Output 01/11/19 01/12/19 19:00 07:00 Intake Total 490 ml Output Total 250 ml Balance 240 ml Intake Oral 490 ml Output Urine Total 250 ml Laboratory Tests Test 01/11/19 20:45 Erythrocyte Sedimentation Rate 32 MM/HR (0-20) H Total Protein (PEP) Pending Albumin (PEP) Pending Globulin (PEP) Pending Albumin/Globulin Ratio Pending Adaug-0-Cmzeshdob Pending Slpjw-6-Ecckvajai Pending Beta Globulins Pending Beta Gamma Globulin Pending PEP Abnormal Protein Bands Pending Protein Electrophoresis Interpret Pending Vitamin B12 Level 620 PG/ML (193-986) Vitamin D 25-Hydroxy Pending 25-Hydroxy Vitamin D2 Pending 25-Hydroxy Vitamin D3 Pending Folate 44.9 NG/ML (8.6-58.9) Rapid Plasma Reagin Pending Microbiology Date/Time Source Procedure Growth Status 01/09/19 22:10 Nasal Nares MRSA Culture - Final NO METHICILLIN RESISTANT STAPH AUREUS... Complete 01/09/19 22:10 Rectum - Final NO CARBAPENEM-RESISTANT ENTEROBACTERI... Complete 01/09/19 22:10 Rectum VRE Culture - Final NO VANCOMYCIN RESISTANT ENTEROCOCCUS ... Complete Hector Ordonez MD Jan 12, 2019 20:14
--- NOTE | 2019-01-12 20:25 | NUR ---
NURSE NOTES: Received order from Dr. Ordonez to be discharged tomorrow to [facility] acute rehab.
--- NOTE | 2019-01-12 21:37 | NUR ---
NURSE NOTES: Held Heparin subQ due to low platelets of 115.
[2019-01-13] VITALS: BP 136/63
[2019-01-13 04:00] VITALS: BP 118/86
--- NOTE | 2019-01-13 07:18 | NUR ---
NURSE NOTES: Received report from CATALINO Baker. Patient asleep and in stable condition. No acute distress/SOB noted. Will continue plan of care.
--- NOTE | 2019-01-13 07:27 | NUR ---
HAND-OFF: Report given to CATALINO Denise.
[2019-01-13 08:00] VITALS: BP 137/88
[2019-01-13] MEDS: Lyrica 75mg cap ORAL SCH ×2 (08:31→13:06)
[2019-01-13] MEDS: Memantine 10mg tab ORAL SCH (08:32)
[2019-01-13] MEDS: Heparin 5000 units/ml inj SUBQ SCH (09:00)
--- NOTE | 2019-01-13 10:17 | NUR ---
DISCHARGE PLANNED PATIENT WILL DISCHARGE TO [facility] ARU ROOM 409 T: [phone] [facility] HAS BEEN ARRANGED FOR [address] [employer] SPOKE WITH SON HERMINIO WHO IS IN AGREEMENT WITH DISCHARGE PLAN
[2019-01-13 12:00] VITALS: BP 140/65
--- NOTE | 2019-01-13 12:40 | NUR ---
NURSE NOTES: Report given to CATALINO Cornelius @ [facility]. Patient is going to Room 430B.
--- NOTE | 2019-01-13 12:49 | NUR ---
NURSE NOTES: Jose Boo/son made aware that pt is getting discharged around 1300.
[2019-01-13 13:46] VITALS: BP_SYST 140; BP_SYST 150; BP_DIAS 65; BP_DIAS 70
--- NOTE | 2019-01-13 13:50 | NUR ---
NURSE NOTES: Patient left with stable condition via gurney. All belongings given to water pollution specialist.
--- NOTE | 2019-01-13 19:55 | NUR ---
MEAT TEAM MEMBER Co-Signature Notes: Reviewed patient's chart. Reviewed and approved MEAT TEAM MEMBER notes. Addendum: 01/13/19 at 2004 by MG MORAN PT Amended: Links added.
--- NOTE | 2019-01-14 11:18 | Discharge Summary ---
Discharge Summary Discharge Summary _ DATE OF ADMISSION: 01/09/2019 DATE OF DISCHARGE: 01/13/2019 DISCHARGED BY: Dr. Hector Ordonez CONSULTANTS: Dr. Avel Alfaro BRIEF HOSPITAL COURSE: Patient is an 83-year-old male, with history of frequent falls due to his spine issue and loss of balance presented to ED due to syncopal episode. Patient was in the bathroom, had a syncopal episode and hit his head. Apparently, he did not remember the actual fall, he denied any loss of consciousness. He was also complaining of lower back pain. Paramedics were summoned. He was given morphine in the field with improvement of his pain. He had a scrape on the scalp. There was no significant bleed. On evaluation at ED, blood pressure was 154/70, heart rate 50, he was saturating well on room air. There was no leukocytosis, hemoglobin and hematocrit were stable. Electrolytes were normal. Troponin was negative. TSH normal. He was noted to have a scrape on the scalp, lesion not suturable. EKG showed bradycardia. CT of the head was negative for acute intracranial bleed or mass-effect. He had an old left temporal/frontal infarct, extra-axial soft tissue density peripheral to the above infarct and on old left basal ganglia infarct. Pelvic and spine CT did not show any acute bony trauma. He was admitted for evaluation of a non-syncopal fall. He was admitted to monitored floor. Patient was bradycardic. There was no significant pauses or bradycardia. Aricept was discontinued. Heart rate was observed off Aricept. Cardiac enzymes were negative. Orthostatic vital signs negative. Neuro evaluation was done. MRI done at [facility] on 11/01/2018 revealed multilevel degenerative disease with central canal stenosis most marked at L4- L5 levels. Patient had cognitive dysfunction, most probably related to mild primary degenerative process. He has mild right seventh central facial paresis most probably related to his left meningioma. He was started on 7-day course of Medrol 4 mg, 3 times daily for spinal stenosis. Blood glucose was then monitored. He was given PT and OT mobility. MRI of the brain was done and showed 3.8 x 2.6 x 3.9 cm extra axial component occupying the anterior sylvian fissure. There was age-related volume loss and chronic maddy-ventricular deep white matter changes. Negative for acute intracranial bleed, midline shift or infarct. He was ambulating with physical therapy. Heart rate was better off Aricept. Patient would benefit from inpatient physical therapy intervention to address his strength, balance, safety and functional mobility. Explained to patient regarding need to continue steroids complete total of 21 doses, and if not better with eventually need surgical decompression. He was then discharged to acute rehab. FINAL DIAGNOSES: Non-syncopal fall Sinus bradycardia, probably effect of Aricept Cervical spondylolisthesis Cervical myelopathy Obesity Asthma GERD DISPOSITION: Patient was discharged to [facility] ARU. I have been assigned to complete a discharge summary on this account, I was not involved with the patient's management. Margo Wild NP Jan 14, 2019 11:18
== END 2019-01-13 13:50 | disposition short-term general hospital (02) | DRG 552 ==
LOC: EDBD 17:03 → EMR 17:35 → 2E 18:01 → EDBEDREQ 20:49
DX: M48.07 Spinal stenosis, lumbosacral region (principal); M47.12 Other spondylosis with myelopathy, cervical region; G82.20 Paraplegia, unspecified; S01.01XA Laceration without foreign body of scalp, initial encounter; W19.XXXA Unspecified fall, initial encounter; Y92.002 Bathroom of unspecified non-institutional (private) residence as the place of occurrence of the external cause; R00.1 Bradycardia, unspecified; T44.1X5A Adverse effect of other parasympathomimetics [cholinergics], initial encounter; E66.9 Obesity, unspecified; K21.9 Gastro-esophageal reflux disease without esophagitis; Z86.73 Personal history of transient ischemic attack (TIA), and cerebral infarction without residual deficits; Z87.891 Personal history of nicotine dependence; I25.10 Atherosclerotic heart disease of native coronary artery without angina pectoris; E11.9 Type 2 diabetes mellitus without complications; J44.9 Chronic obstructive pulmonary disease, unspecified; M06.9 Rheumatoid arthritis, unspecified; I25.2 Old myocardial infarction; R29.6 Repeated falls; R26.89 Other abnormalities of gait and mobility; G51.0 Bell's palsy; D32.9 Benign neoplasm of meninges, unspecified; N40.0 Benign prostatic hyperplasia without lower urinary tract symptoms
CPT/HCPCS: 36415; 70450; 70551; 71045; 72131; 72192; 80048; 80053; 81003; 82306; 82550; 82607; 82746; 83036; 83735; 83880; 84165; 84443; 84484; 85025; 85610; 85651; 85730; 86592; 87081; 90471; 90715; 93005; 94640; 96360; 96372; 99285